=== PATIENT | male | born 1950 | race Caucasian/White ===

== ENCOUNTER → 2022-09-21 09:09 | Outpatient (CLI) | payer MEDICARE, SELFPAY ==
--- NOTE | 2022-09-21 09:11 | DI.RAD.S_ITS ---
PROCEDURE: XR FOOT RT MIN 3V INDICATIONS: TTP over right proximal foot and posterior to lat malleolus TECHNIQUE: 3 views of the foot were acquired. COMPARISON: [facility], CR, XR ANKLE RT MIN 3V, 09/21/2022, 9:07. FINDINGS: Bones: Oblique distal fibular shaft fracture in the region of the syndesmosis. No other fracture or dislocation. Soft tissues: No tibiotalar joint effusion. Achilles tendon appears normal. IMPRESSION: Oblique distal fibular fracture. No fracture or dislocation at the foot. Dictated by: Joe Lancaster M.D. on 09/21/2022 at 9:42 Approved by: Joe Lancaster M.D. on 09/21/2022 at 9:43
--- NOTE | 2022-09-21 09:11 | DI.RAD.S_ITS ---
PROCEDURE: XR ANKLE RT MIN 3V INDICATIONS: TTP over navicula TECHNIQUE: 3 views of the ankle were acquired. COMPARISON: None. FINDINGS: Bones: Oblique nondisplaced distal fibular fracture in the region of the syndesmosis. No other fractures or dislocations. Ankle mortise is normally aligned. No suspicious bony lesions. Soft tissues: No tibiotalar joint effusion. Achilles tendon appears normal. IMPRESSION: Oblique distal fibular fracture in the region of the syndesmosis. Dictated by: Joe Lancaster M.D. on 09/21/2022 at 9:43 Approved by: Joe Lancaster M.D. on 09/21/2022 at 9:43
== END ==
PROVIDERS: Referring Provider Physician Assistant; Visit Provider Physician Assistant
DX: S82.434A Nondisplaced oblique fracture of shaft of right fibula, initial encounter for closed fracture (principal); M25.571 Pain in right ankle and joints of right foot; M79.671 Pain in right foot
CPT/HCPCS: 73610; 73630

== ENCOUNTER 2022-09-24 13:36 | Emergency (ER) | payer MEDICARE, SELFPAY ==
[2022-09-24 13:41] VITALS: BP 213/115; PULSE 83; O2SAT 93
[2022-09-24 13:42] VITALS: BP 213/111; PULSE 83; RESP 19; TEMP 36.7; O2SAT 94; BMI 30.3
[2022-09-24] MEDS: LIDOCAINE 2% (GLYDO) 6 ML GEL TOP (13:52)
[2022-09-24 14:00] VITALS: PULSE 82; O2SAT 96
[2022-09-24 14:00] LABS: Appearance Urine UA CLEAR; Bilirubin Urine UA NEGATIVE (NEGATIVE); Color Urine UA YELLOW; Glucose Urine UA NEGATIVE (Negative); Ketones Urine UA NEGATIVE (NEGATIVE); Leukocyte Esterase Urine UA NEGATIVE (NEGATIVE); Nitrite Urine UA NEGATIVE (Negative); Occult Blood Urine UA NEGATIVE (Negative); Protein Urine UA 1+ (Negative); Specific Gravity Urine UA 1.015 (1.000-1.035); pH Urine UA 5.5 (4.5-8.0)
[2022-09-24 14:09] LABS: Bacteria Urine None Seen; Culture Indicated Urine Cult Not Indicated; RBC Urine 5-10/HPF (0-5/HPF); Squamous Epithelial Cell Urine None Seen (0-5/HPF); WBC Urine 0-1/HPF (0-5/HPF)
--- NOTE | 2022-09-24 14:15 | ED_ITS ---
HPI - General Adult General Chief complaint: Urogenital-Male Stated complaint: unable to void x 24 hours, pain, discomfort. Time Seen by Provider: 09/24/22 13:46 Source: patient Mode of arrival: Wheelchair History of Present Illness HPI narrative: Patient is a 72-year-old male. No prior history of prostate issues. No prior history of urinary retention who is here for evaluation of approximately 24 hours of the inability to void. He states that during this time he also has felt like he is needed to have a bowel movement but has not been able to. He is not had any vomiting. He actually states he did have a small amount of urinati on this morning but has not been able to void at all since then. He was having some lower abdominal tenderness. He did receive the Ayala catheter prior to my evaluation he states he does feel much better. He is still having the urge to have a bowel movement. He states he does feel like there is stool in his rectum. He did try an enema at home prior to arrival without any success. Related Data Home Medications Medication Instructions Recorded Confirmed lisinopril 5 mg tablet 5 mg PO DAILY 09/21/22 09/21/22 lovastatin 10 mg tablet 10 mg PO DAILY 09/21/22 09/21/22 metformin 500 mg tablet 500 mg PO DAILY 09/21/22 09/21/22 sildenafil 25 mg tablet 25 mg PO DAILY PRN 09/21/22 09/21/22 Previous Rx's Medication Instructions Recorded tamsulosin 0.4 mg capsule (Flomax) 0.4 mg PO DAILY #30 caps 09/24/22 Allergies Allergy/AdvReac Type Severity Reaction Status Date / Time No Known Drug Allergies Allergy Unverified 09/24/22 13:42 Review of Systems Gastrointestinal Gastrointestinal: Reports system reviewed and no additional complaints, except as documented Genitourinary Genitourinary: Reports system reviewed and no additional complaints, except as documented Integumentary/Breasts Skin/Breast: Reports system reviewed and no additional complaints, except as documented Patient History Smoking Status: Never smoker Substance Use Type: does not use Exam Initial Vital Signs Initial Vital Signs: Vital Signs Pulse Rate 83 09/24/22 13:41 Blood Pressure 213/115 H 09/24/22 13:41 Pulse Oximetry 93 09/24/22 13:41 HENMT Head: normal to inspection and normocephalic Resp Effort & Inspection: normal respiratory effort Cardio Rate: regular rate GI Inspection: normal to inspection and non-distended Palpation: soft, No firm and No tender Neuro General: patient alert, patient awake and moves all extremities Extrem General: normal to inspection and capillary refill normal Course Orders Ordered: ED Orders 09/24/22 13:48 Urinalysis and Microscopic Stat Discontinued Medications Lidocaine HCl (Lidocaine 2% (Glydo) 6 Ml Gel) 6 ml TOP NOW ONE Stop: 09/24/22 13:40 Last Admin: 09/24/22 13:52 Dose: 6 ml Documented By: CTS Sodium Biphosphate/Sodium Phosphate (Fleets Enema) 1 each PA NOW ONE Stop: 09/24/22 14:37 Vital Signs Vital signs: Vital Signs - 8 hr 09/24/22 13:42 09/24/22 13:41 09/24/22 13:41 Temperature 98.1 F Pulse Rate 83 83 Respiratory Rate 19 Blood Pressure 213/111 H 213/115 H Pulse Oximetry 94 93 Oxygen Delivery Method Room Air 09/24/22 14:00 09/24/22 14:30 Temperature Pulse Rate 82 80 Respiratory Rate Blood Pressure Pulse Oximetry 96 98 Oxygen Delivery Method Medical Decision Making Lab Data Labs: Lab Results 09/24/22 Range/Units 13:48 Urine Color Yellow Urine Appearance Clear Urine pH 5.5 (4.5-8.0) Ur Specific [place] 1.015 (1.000-1.035) Urine Protein 1+ H (Negative) Urine Glucose (UA) Negative (Negative) g/dL Urine Ketones Negative (NEGATIVE) Urine Occult Blood Negative (Negative) Urine Nitrate Negative (Negative) Urine Bilirubin Negative (NEGATIVE) Urine Urobilinogen 1.0 (0.2) E.U./dL Ur Leukocyte Esterase Negative (NEGATIVE) Urine RBC 5-10/hpf H (0-5/HPF) Urine WBC 0-1/hpf (0-5/HPF) Ur Squamous Epith Cells None seen (0-5/HPF) Urine Bacteria None seen (None) Ur Culture Indicated? Cult not indicated MDM Narrative Medical decision making narrative: A Ayala catheter was placed with a total of just less than 1 L of urine. Patient also had a very large bowel movement here in the ER. This was done prior to obtaining any sort of enema. He states he feels much better. He is no signs of a urinary tract infection. Plan abuse leave the catheter in place. We will start him on Flomax. Will have him contact Urology for follow-up. He was given return precautions. He expressed understanding and agreement. Discharge Plan Departure Patient Disposition: Home Clinical Impression: Acute retention of urine Instructions: How to Care for Your Ayala Catheter -- Male, DI for Urinary Retention in Men Activity Restrictions/Additional Instructions: I do recommend that you start taking the Flomax/tamsulosin as directed. On Saturday morning contact the Urology Department at the number provided below for a follow-up. Return to the emergency department for new or worsening symptoms. Prescriptions: New tamsulosin [Flomax] 0.4 mg capsule 0.4 mg PO DAILY Qty: 30 0RF No Action metformin 500 mg tablet 500 mg PO DAILY lisinopril 5 mg tablet 5 mg PO DAILY lovastatin 10 mg tablet 10 mg PO DAILY sildenafil 25 mg tablet 25 mg PO DAILY PRN Rx Instructions: administer 30 minutes to 4 hours before activity Referrals: Jonah Godinez MD [Primary Care Provider] - Jonah Fernando MD [Physician] - Stand Alone Forms: Patient Portal/API
[2022-09-24 14:30] VITALS: PULSE 80; O2SAT 98
--- NOTE | 2022-09-24 15:33 | PC.NURSE ---
Pt had large BM after carbajal drainage. Pt states he feels much better. Enema was not needed. Carbajal drained and leg bag applied and pt instructed how to use.
[2022-09-24 15:52] VITALS: BP 185/95; PULSE 82; RESP 16; O2SAT 99
== END 2022-09-24 15:52 | disposition home or self-care (01) ==
PROVIDERS: Emergency Provider Emergency Medicine; PCP Internal Medicine
DX: R33.8 Other retention of urine (principal); R10.30 Lower abdominal pain, unspecified
CPT/HCPCS: 81001; 99283

== ENCOUNTER 2022-09-24 22:41 | Observation (INO) | payer MEDICARE, SELFPAY ==
[2022-09-24 22:46] VITALS: BP 175/84; PULSE 118; RESP 19; TEMP 36.4; O2SAT 96; BMI 30.3
--- NOTE | 2022-09-24 22:53 | DI.RAD.S_ITS ---
PROCEDURE: XR CHEST 1V INDICATIONS: chest pain TECHNIQUE: One view of the chest was acquired. COMPARISON: [facility], CR, XR CHEST 1 VIEW, 08/22/2020, 23:25. FINDINGS: Surgical changes and devices: None. Lungs and pleura: There is hyperinflation of the lungs with flattening of the hemidiaphragms compatible with COPD. No acute consolidation. Linear atelectasis or scarring redemonstrated within the left lung base. No pleural effusions or pneumothorax. Mediastinum: Mediastinal contours are unchanged. Heart size is enlarged. Bones and chest wall: No suspicious bony lesions. Overlying soft tissues appear unremarkable. IMPRESSION: 1. Findings compatible with COPD. 2. Probable atelectasis or scarring in the left lung base. Dictated by: Gaston Ortiz M.D. on 09/25/2022 at 0:02 Approved by: Gaston Ortiz M.D. on 09/25/2022 at 0:03
--- NOTE | 2022-09-24 23:34 | ED_ITS ---
HPI - Weakness General Chief complaint: Weakness Stated complaint: weak/fever/tingle/heart rate is up Time Seen by Provider: 09/24/22 23:01 Source: patient Mode of arrival: Wheelchair History of Present Illness HPI Narrative: Patient is 72-year-old male history of hyperlipidemia hypertension diabetes presenting for the 3rd time this week and 2nd time today. He initially presented with right ankle pain and injury. Found to have a spiral distal fibular fracture on September 21. He has been placed in a walking boot and seems to be doing okay. He did also injure his big toe at that time. He then had some urinary retention and constipation and was seen this morning in the ED. He reports that this morning he was only able to void a small amount. He also felt like he was constipated. He would a Ayala catheter placed for the urinary retention. Urinalysis this morning was negative vitals were stable he is since had a large bowel movement. Tonight he reports he just increased weakness. He says he went home and just head extreme fatigue not feeling well. He is noted to be quite tachycardic heart rate in the 118. He denies any worsening cough or shortness of breath. No significant abdominal pain no nausea or vomiting. His ankle is painful. He is from [place] currently living on his boat. Related Data Home Medications Medication Instructions Recorded Confirmed lisinopril 5 mg tablet 5 mg PO DAILY 09/21/22 09/21/22 lovastatin 10 mg tablet 10 mg PO DAILY 09/21/22 09/21/22 metformin 500 mg tablet 500 mg PO DAILY 09/21/22 09/21/22 sildenafil 25 mg tablet 25 mg PO DAILY PRN 09/21/22 09/21/22 Previous Rx's Medication Instructions Recorded tamsulosin 0.4 mg capsule (Flomax) 0.4 mg PO DAILY #30 caps 09/24/22 Allergies Allergy/AdvReac Type Severity Reaction Status Date / Time No Known Drug Allergies Allergy Verified 09/24/22 22:46 Review of Systems Review of Systems ROS Unobtainable: All systems reviewed & are unremarkable except as noted in HPI and below Patient History Medical History Essential hypertension Hyperlipidemia due to type 2 diabetes mellitus Non-insulin dependent diabetes mellitus Social History (Reviewed 09/25/22 @ 03:46 by YUNG ThapaAi Smoking Status: Never smoker Smoking Status: Never smoker Substance Use Type: does not use Exam Initial Vital Signs Initial Vital Signs: Vital Signs Temperature 97.6 F 09/24/22 22:46 Pulse Rate 118 H 09/24/22 22:46 Respiratory Rate 19 09/24/22 22:46 Blood Pressure 175/84 H 09/24/22 22:46 Pulse Oximetry 96 09/24/22 22:46 Oxygen Delivery Method Room Air 09/24/22 22:46 GENERAL: Alert week 72-year-old male HEENT: Head atraumatic,EOMI, pupils reactive, face symmetric, dry mucous membranes CARDIOVASCULAR: Tachycardic regular rate and rhythm without murmurs, rubs or gallops. RESPIRATORY: Breath sounds equal bilaterally, no wheezes rales or rhonchi. ABDOMEN: Soft, nontender. Normoactive bowel sounds all 4 quadrants. No guar ding or rebound. EXTREMITIES: Normal range of motion, no clubbing or edema. Neurovascularly intact NEUROLOGICAL: Alert and oriented x4.Normal gait and speech. SKIN: Warm, dry, no laceration, no petechiae, no rashes or lesions. Patient's right ankle is unwrapped there is no erythema right big toe subungual hematoma but no erythema or redness. Course Orders Ordered: ED Orders 09/24/22 22:53 XR chest 1V Stat EKG-12 Lead Stat 09/24/22 23:30 Complete Blood Count AUTO DIFF Stat Comprehensive Metabolic Panel Stat Lactate (Lactic Acid) Stat Lipase Stat Magnesium Stat PTT Partial Thromboplastin [place] Stat Procalcitonin Stat Prothrombin Time INR Stat Troponin & CK Cardiac Panel Stat 09/24/22 23:53 Blood Culture Stat 09/24/22 23:56 Urine Culture Stat 09/25/22 00:01 UA Complete [Urinalysis and Microscopic] Stat 09/25/22 00:10 Covid-19 + FLU A/B + RSV - PCR Stat 09/25/22 03:21 Education, smoking cessation ONGOING Acetaminophen (Acetaminophen 325 Mg Tablet) 650 mg PO Q6H PRN PRN Reason: Fever/Mild Pain (1-3) Al Hydrox/Mg Hydrox/Simethicone (Mag Hydrox/Alum/Simeth 30 Ml Udc) 30 ml PO Q6HR PRN PRN Reason: Dyspepsia Atorvastatin Calcium (Atorvastatin 20 Mg Tablet) 10 mg PO BEDTIME [facility] Calcium Carbonate (Calcium Carbonate 500 Mg Tab) 1,000 mg PO Q4HR PRN PRN Reason: Dyspepsia Dextrose (Dextrose 50 % In Water 25 Gm/50 Ml Syringe) 25 gm IV PRN PRN PRN Reason: Hypoglycemia Enoxaparin Sodium (Enoxaparin 40 Mg/0.4 Ml Syringe) 40 mg SUBCUT DAILY LOVE Sodium Chloride (Normal Saline 0.9%) 1,000 mls @ 80 mls/hr IV CONT LOVE Ceftriaxone Sodium 1,000 mg/ (Sodium Chloride) 100 mls @ 200 mls/hr IV DAILY [facility] Insulin Human Lispro (Insulin Lispro 100 Unit/Ml 3ml Vial) 0 unit SUBCUT ACHS LOVE; Protocol Ketorolac Tromethamine (Ketorolac 10 Mg Tablet) 10 mg PO Q6HR PRN PRN Reason: Pain, Mild (1-1) Stop: 09/30/22 04:04 Lisinopril (Lisinopril 5 Mg Tablet) 5 mg PO DAILY [facility] Metoprolol Tartrate (Metoprolol Ir 25 Mg Tablet) 25 mg PO NOW ONE Stop: 09/25/22 04:13 Naloxone HCl (Naloxone 0.4 Mg/Ml Vial) 0.2 mg IV Q2MIN PRN PRN Reason: Opiate Reversal Ondansetron HCl (Ondansetron 4 Mg Odt) 4 mg PO Q8HR PRN PRN Reason: Nausea And Vomiting Sennosides (Sennosides 8.6 Mg Tablet) 17.2 mg PO BEDTIME [facility] Tamsulosin HCl (Tamsulosin 0.4 Mg Capsule) 0.4 mg PO DAILY [facility] Discontinued Medications Sodium Chloride (Normal Saline 0.9%) 1,000 mls @ 1,000 mls/hr IV BOLUS ONE Stop: 09/25/22 00:48 Last Infusion: 09/25/22 01:05 Dose: 0 mls/hr Documented By: Admin: 09/25/22 00:05 Dose: 1,000 mls/hr Documented By: QUOC Sodium Chloride (Normal Saline 0.9%) 1,000 mls @ 1,000 mls/hr IV BOLUS ONE Stop: 09/25/22 01:36 Last Infusion: 09/25/22 02:13 Dose: 0 mls/hr Documented By: Admin: 09/25/22 01:06 Dose: 1,000 mls/hr Documented By: QUOC Ceftriaxone Sodium 1,000 mg/ (Sodium Chloride) 100 mls @ 200 mls/hr IV NOW ONE Stop: 09/25/22 01:20 Last Infusion: 09/25/22 02:13 Dose: 0 mls/hr Documented By: Admin: 09/25/22 01:36 Dose: 200 mls/hr Documented By: QUOC Ceftriaxone Sodium 1,000 mg/ (Sodium Chloride) 100 mls @ 200 mls/hr IV NOW ONE Stop: 09/25/22 03:30 Ketorolac Tromethamine (Ketorolac 30 Mg/Ml Vial) 15 mg IV NOW ONE Stop: 09/25/22 01:22 Last Admin: 09/25/22 01:37 Dose: 15 mg Documented By: QUOC Non-Formulary Medication (Lovastatin) 10 mg PO DAILY LOVE Vital Signs Vital signs: Vital Signs - 8 hr 09/24/22 22:46 09/25/22 00:44 09/25/22 02:30 Temperature 97.6 F Pulse Rate 118 H 98 H 103 H Respiratory Rate 19 16 22 Blood Pressure 175/84 H 194/105 H 165/74 H Pulse Oximetry 96 97 Oxygen Delivery Method Room Air Room Air Room Air MDM - Weakness Lab Data 09/24/22 23:30 09/24/22 23:30 Labs: Lab Results 09/24/22 09/24/22 09/24/22 Range/Units 23:30 23:30 23:30 WBC 13.6 H (4.5-11.0) X10^3/uL RBC 4.69 (4.5-5.9) X10^6/uL Hgb 14.3 (13.5-17.5) g/dL Hct 41.2 (41-53) % MCV 87.8 (80-100) fL MCH 30.4 (26-34) PG MCHC 34.7 (30-36) % RDW 14.5 (11.6-14.8) % Plt Count 222 (150-400) X10^3/uL Neut % (Auto) 81.6 H (50-75) % Lymph % (Auto) 10.1 L (25-40) % Hill % (Auto) 7.6 (3-14) % Eos % (Auto) 0.1 L (2-4) % Baso % (Auto) 0.6 (0-2) % Neut # (Auto) 30322 H (2906-4796) /uL Lymph # (Auto) 1400 (5558-5616) /uL Hill # (Auto) 1000 H (0-900) /uL Eos # (Auto) 0 (0-450) /uL Baso # (Auto) 100 (0-100) /uL PT 13.0 H (10.1-12.7) SECONDS INR 1.1 (0.9-1.3) APTT 31 (26-36) SECONDS Sodium 131 L (137-145) mmol/L Potassium 4.1 (3.4-5.1) mmol/L Chloride 97 L (98-107) mmol/L Carbon Dioxide 23 (22-32) mmol/L BUN 16 (9-20) mg/dL Creatinine 0.87 (0.66-1.25) mg/dL Estimated GFR > 60 (>60) mL/min BUN/Creatinine Ratio 18.4 (6-22) Glucose 214 H (80-110) mg/dL Lactate (0.7-2.1) mmol/L Calcium 9.1 (8.4-10.2) mg/dL Magnesium 1.9 (1.6-2.3) mg/dL Total Bilirubin 0.9 (0.2-1.3) mg/dL AST 24 (17-59) IU/L ALT 29 (<50) IU/L Alkaline Phosphatase 113 (38-126) U/L Total Creatine Kinase 86 (55-170) U/L Troponin I < 0.012 (0.01-0.034) ng/mL NT-Pro-B Natriuret Pep (<125) pg/mL Total Protein 7.6 (6.3-8.2) g/dL Albumin 4.1 (3.5-5.0) g/dL Globulin 3.5 (1.7-4.1) g/dL Albumin/Globulin Ratio 1.2 (1.0-2.8) Lipase 45 (23-300) U/L Procalcitonin (<0.5) ng/mL Urine Color Urine Appearance Urine pH (4.5-8.0) Ur Specific [place] (1.000-1.035) Urine Protein (Negative) Urine Glucose (UA) (Negative) g/dL Urine Ketones (NEGATIVE) Urine Occult Blood (Negative) Urine Nitrate (Negative) Urine Bilirubin (NEGATIVE) Urine Urobilinogen (0.2) E.U./dL Ur Leukocyte Esterase (NEGATIVE) Urine RBC (0-5/HPF) Urine WBC (0-5/HPF) Ur Squamous Epith Cells (0-5/HPF) Urine Bacteria (None) Ur Culture Indicated? SARS-CoV-2 (PCR) (Negative) Influenza A (RT-PCR) (NEGATIVE) Influenza B (RT-PCR) (NEGATIVE) RSV (PCR) (Negative) 09/24/22 09/24/22 09/24/22 Range/Units 23:30 23:30 23:30 WBC (4.5-11.0) X10^3/uL RBC (4.5-5.9) X10^6/uL Hgb (13.5-17.5) g/dL Hct (41-53) % MCV (80-100) fL MCH (26-34) PG MCHC (30-36) % RDW (11.6-14.8) % Plt Count (150-400) X10^3/uL Neut % (Auto) (50-75) % Lymph % (Auto) (25-40) % Hill % (Auto) (3-14) % Eos % (Auto) (2-4) % Baso % (Auto) (0-2) % Neut # (Auto) (4037-0516) /uL Lymph # (Auto) (8362-5080) /uL Hill # (Auto) (0-900) /uL Eos # (Auto) (0-450) /uL Baso # (Auto) (0-100) /uL PT (10.1-12.7) SECONDS INR (0.9-1.3) APTT (26-36) SECONDS Sodium (137-145) mmol/L Potassium (3.4-5.1) mmol/L Chloride (98-107) mmol/L Carbon Dioxide (22-32) mmol/L BUN (9-20) mg/dL Creatinine (0.66-1.25) mg/dL Estimated GFR (>60) mL/min BUN/Creatinine Ratio (6-22) Glucose (80-110) mg/dL Lactate 3.1 H (0.7-2.1) mmol/L Calcium (8.4-10.2) mg/dL Magnesium (1.6-2.3) mg/dL Total Bilirubin (0.2-1.3) mg/dL AST (17-59) IU/L ALT (<50) IU/L Alkaline Phosphatase (38-126) U/L Total Creatine Kinase (55-170) U/L Troponin I (0.01-0.034) ng/mL NT-Pro-B Natriuret Pep 577 H (<125) pg/mL Total Protein (6.3-8.2) g/dL Albumin (3.5-5.0) g/dL Globulin (1.7-4.1) g/dL Albumin/Globulin Ratio (1.0-2.8) Lipase (23-300) U/L Procalcitonin 0.24 (<0.5) ng/mL Urine Color Urine Appearance Urine pH (4.5-8.0) Ur Specific [place] (1.000-1.035) Urine Protein (Negative) Urine Glucose (UA) (Negative) g/dL Urine Ketones (NEGATIVE) Urine Occult Blood (Negative) Urine Nitrate (Negative) Urine Bilirubin (NEGATIVE) Urine Urobilinogen (0.2) E.U./dL Ur Leukocyte Esterase (NEGATIVE) Urine RBC (0-5/HPF) Urine WBC (0-5/HPF) Ur Squamous Epith Cells (0-5/HPF) Urine Bacteria (None) Ur Culture Indicated? SARS-CoV-2 (PCR) (Negative) Influenza A (RT-PCR) (NEGATIVE) Influenza B (RT-PCR) (NEGATIVE) RSV (PCR) (Negative) 09/24/22 09/25/22 09/25/22 Range/Units 23:56 00:10 01:33 WBC (4.5-11.0) X10^3/uL RBC (4.5-5.9) X10^6/uL Hgb (13.5-17.5) g/dL Hct (41-53) % MCV (80-100) fL MCH (26-34) PG MCHC (30-36) % RDW (11.6-14.8) % Plt Count (150-400) X10^3/uL Neut % (Auto) (50-75) % Lymph % (Auto) (25-40) % Hill % (Auto) (3-14) % Eos % (Auto) (2-4) % Baso % (Auto) (0-2) % Neut # (Auto) (4945-6201) /uL Lymph # (Auto) (4762-9978) /uL Hill # (Auto) (0-900) /uL Eos # (Auto) (0-450) /uL Baso # (Auto) (0-100) /uL PT (10.1-12.7) SECONDS INR (0.9-1.3) APTT (26-36) SECONDS Sodium (137-145) mmol/L Potassium (3.4-5.1) mmol/L Chloride (98-107) mmol/L Carbon Dioxide (22-32) mmol/L BUN (9-20) mg/dL Creatinine (0.66-1.25) mg/dL Estimated GFR (>60) mL/min BUN/Creatinine Ratio (6-22) Glucose (80-110) mg/dL Lactate 2.0 (0.7-2.1) mmol/L Calcium (8.4-10.2) mg/dL Magnesium (1.6-2.3) mg/dL Total Bilirubin (0.2-1.3) mg/dL AST (17-59) IU/L ALT (<50) IU/L Alkaline Phosphatase (38-126) U/L Total Creatine Kinase (55-170) U/L Troponin I (0.01-0.034) ng/mL NT-Pro-B Natriuret Pep (<125) pg/mL Total Protein (6.3-8.2) g/dL Albumin (3.5-5.0) g/dL Globulin (1.7-4.1) g/dL Albumin/Globulin Ratio (1.0-2.8) Lipase (23-300) U/L Procalcitonin (<0.5) ng/mL Urine Color Yellow Urine Appearance Clear Urine pH 5.5 (4.5-8.0) Ur Specific [place] 1.020 (1.000-1.035) Urine Protein 1+ H (Negative) Urine Glucose (UA) 3+ H (Negative) g/dL Urine Ketones Trace H (NEGATIVE) Urine Occult Blood 3+ H (Negative) Urine Nitrate Negative (Negative) Urine Bilirubin Negative (NEGATIVE) Urine Urobilinogen 1.0 (0.2) E.U./dL Ur Leukocyte Esterase 1+ H (NEGATIVE) Urine RBC 1-5/hpf (0-5/HPF) Urine WBC 5-10/hpf H (0-5/HPF) Ur Squamous Epith Cells None seen (0-5/HPF) Urine Bacteria None seen (None) Ur Culture Indicated? Specimen cultured SARS-CoV-2 (PCR) Negative (Negative) Influenza A (RT-PCR) Flu a negative (NEGATIVE) Influenza B (RT-PCR) Flu b negative (NEGATIVE) RSV (PCR) Negative (Negative) Urine Dip Bedside Urine Glucose 2000+ mg/dl Bedside Urine Bilirubin - Negative Bedside Urine Ketone - Negative Urine Specific [place] 1.020 Bedside Urine Occult Blood +++ Bedside Urine pH 5.5 Bedside Urine Protein + 30 Bedside Urine Urobilinogen - Negative Bedside Urine Nitrite - Negative Bedside Urine Leukocytes +/- 15 Esterase Imaging Data Chest x-ray: Radiologist Impression: PROCEDURE:? XR CHEST 1V ? INDICATIONS:? chest pain ? TECHNIQUE:? One view of the chest was acquired.? ? COMPARISON:? [facility], , XR CHEST 1 VIEW, 08/22/2020, 23:25. ? FINDINGS:? ? Surgical changes and devices:? None.? ? Lungs and pleura:? There is hyperinflation of the lungs with flattening of the hemidiaphragms compatible with COPD.? No acute consolidation.? Linear atelectasis or scarring redemonstrated within the left lung base.? No pleural effusions or pneumothorax. ? ? Mediastinum:? Mediastinal contours are unchanged.? Heart size is enlarged. ? Bones and chest wall:? No suspicious bony lesions.? Overlying soft tissues appear unremarkable.? ? IMPRESSION:? ? 1. Findings compatible with COPD. ? 2. Probable atelectasis or scarring in the left lung base.? ? ? Dictated by: Gaston Ortiz M.D. on 09/25/2022 at 0:02 ? ? Approved by: Gaston Ortiz M.D. on 09/25/2022 at 0:03? ECG Data Interpretation: Sinus tachycardia rate 108 KS interval 170 QRS 4 QTC 452 Q-wave noted in lead [address] changes no priors to compare MDM Narrative Medical decision making narrative: Patient is 72-year-old male presents today with generally not feeling well. He would Ayala catheter placed this morning long with some diarrhea constipation. He is to be quite tachycardic 118 initially he was not tachycardic during his last visit he has some mild leukocytosis 13 with a lactic acid of 3.1. He is afebrile here in the ED. Concern for sepsis UTI. There is no cellulitis identified, no pneumonia or other symptoms. He is given Rocephin. Urinalysis earlier this morning did not show any leukocytes however now there is WBC and leuks along with blood. He is not having any abdominal pain or back pain. No nausea or vomiting. Just generally weak heart rate improves with IV fluids lactate improves as well. Symptoms came on extremely fasting very sudden. [facility] accepts patient Discharge Plan Departure Patient Disposition: Admitted As Inpatient Clinical Impression: Acute UTI Admit Date/Time: 09/25/22 03:24 Admit Provider: Imelda Kee
[2022-09-24 23:49] LABS: Add Manual Diff / Slide Review NO; Basophils Absolute Auto 100 /uL (0-100); Basophils Percent Auto 0.6 % (0-2); Eosinophils Absolute Auto 0 /uL (0-450); Eosinophils Percent Auto 0.1 % (2-4); Hematocrit 41.2 % (41-53); Hemoglobin 14.3 g/dL (13.5-17.5); Lymphocytes Absolute Auto 1400 /uL (1100-4500); Lymphocytes Percent Auto 10.1 % (25-40); Mean Corpuscular HGB Conc 34.7 % (30-36); Mean Corpuscular Hemoglobin 30.4 PG (26-34); Mean Corpuscular Volume 87.8 fL (80-100); Monocytes Absolute Auto 1000 /uL (0-900); Monocytes Percent Auto 7.6 % (3-14); Neutrophils Absolute Auto 11100 /uL (1500-7000); Neutrophils Percent Auto 81.6 % (50-75); Platelet Count 222 X10^3/uL (150-400); Red Blood Cell Count 4.69 X10^6/uL (4.5-5.9); Red Cell Distribution Width 14.5 % (11.6-14.8); White Blood Cell Count 13.6 X10^3/uL (4.5-11.0)
[2022-09-24 23:52] LABS: INR 1.1 (0.9-1.3)
[2022-09-24 23:54] LABS: Lactate (Lactic Acid) 3.1 mmol/L (0.7-2.1)
[2022-09-24 23:55] LABS: PTT Partial Thromboplastin Tim 31 SECONDS (26-36)
[2022-09-24 23:56] LABS: Alanine Aminotransferase 29 IU/L (<50); Albumin 4.1 g/dL (3.5-5.0); Albumin Globulin Ratio 1.2 (1.0-2.8); Alkaline Phosphatase 113 U/L (38-126); Aspartate Aminotransferase 24 IU/L (17-59); BUN Creatinine Ratio 18.4 (6-22); Bilirubin Total 0.9 mg/dL (0.2-1.3); Blood Urea Nitrogen 16 mg/dL (9-20); Calcium 9.1 mg/dL (8.4-10.2); Carbon Dioxide 23 mmol/L (22-32); Chloride 97 mmol/L (98-107); Creatine Kinase 86 U/L (55-170); Estimated Glomerular Filt Rate > 60 mL/min (>60); Globulin 3.5 g/dL (1.7-4.1); Glucose 214 mg/dL (80-110); HEMOLYSIS < 15 (0-50); Lipase 45 U/L (23-300); Magnesium 1.9 mg/dL (1.6-2.3); Potassium 4.1 mmol/L (3.4-5.1); Sodium 131 mmol/L (137-145); Total Protein 7.6 g/dL (6.3-8.2)
[2022-09-25] VITALS (11 sets, daily range): BP systolic 147–205; BP diastolic 74–109; PULSE 72–105; RESP 16–24; TEMP 36.3–36.9; O2SAT 97–98; BMI 30.8
[2022-09-25] MEDS: SODIUM CHLORIDE 0.9% 1,000 ML 1000 ML IV ×2 (00:05→01:06)
[2022-09-25 00:09] LABS: Troponin I < 0.012 ng/mL (0.01-0.034)
[2022-09-25 00:12] LABS: Procalcitonin 0.24 ng/mL (<0.5)
[2022-09-25 00:30] LABS: Appearance Urine UA CLEAR; Bilirubin Urine UA NEGATIVE (NEGATIVE); Color Urine UA YELLOW; Glucose Urine UA 3+ g/dL (Negative); Ketones Urine UA TRACE (NEGATIVE); Leukocyte Esterase Urine UA 1+ (NEGATIVE); Nitrite Urine UA NEGATIVE (Negative); Occult Blood Urine UA 3+ (Negative); Protein Urine UA 1+ (Negative); pH Urine UA 5.5 (4.5-8.0)
[2022-09-25 00:46] LABS: Bacteria Urine None Seen; RBC Urine 1-5/HPF (0-5/HPF); Squamous Epithelial Cell Urine None Seen (0-5/HPF); WBC Urine 5-10/HPF (0-5/HPF)
[2022-09-25 00:47] LABS: Culture Indicated Urine Specimen Cultured
[2022-09-25 01:28] LABS: Influenza A - CEPHEID Flu A NEGATIVE (NEGATIVE); Influenza B - CEPHEID Flu B NEGATIVE (NEGATIVE); Respiratory Syncytial Virus Negative (Negative)
[2022-09-25 01:30] LABS: COVID-19 CEPHEID 4-PLEX PCR Negative (Negative)
[2022-09-25 01:35] LABS: Reflexed Lactate in 2 Hours Y
[2022-09-25] MEDS: cefTRIAXone 1,000 MG in SODIUM CHLORIDE 0.9% 100 ML 200 MG IV ×2 (01:36→04:30)
[2022-09-25] MEDS: KETOROLAC 30 MG/ML VIAL 15 MG IV (01:37)
--- NOTE | 2022-09-25 03:33 | P.HP_ITS ---
History of Present Illness History of Present Illness Date Patient Seen: 09/25/22 Time Patient Seen: 03:33 Chief complaint: Urinary retention, tachy, lactic acidosis, HTN Urg Narrative: Kem Huitron is a 72-year-old male with a past medical history of HTN, HLD, NID DM who has presented to the emergency department 3 times this week and twice in the past 24 hrs. ?He initially presented with right ankle pain and injury, spiral distal fibular fracture on September 21, in a walking boot. He then demonstrated while in ED some urinary retention and constipation and was seen this morning in the ED. A Ayala catheter was placed. Urinalysis this morning was negative vitals were stable, and he had a large bowel movement in the department he was discharged home to follow up with Urology as an outpatient.? Tonight he returned c/o increased weakness and extreme fatigue.?In Ed he was found to be quite tachycardic heart rate in the 118, HTN urgency 213/111, 194/105 Patient received 2 L of fluid and a g of Rocephin in ED. On admit patient complains of mild shortness of breath with continued feeling of pounding from tachycardia, has had some mild chills on and off noticed urinary retention this morning, and was lightheaded when he got up to transfer to the bed. Denies chest pain, headache, changes in vision, difficulty swallowing, speech impairment, numbness, tingling, head injury, LOC, fever, body aches, cough, recent exposure to illness, abdominal pain, nausea, vomiting, dysuria, frequency, urgency, hematuria, stool incontinence, melena, rashes, recent changes to medication, illness or trauma. Denies any trauma to spine or head. His ankle is painful.? He is from [place] living on his boat. He denies any personal or family history of atrial fibrillation or tachycardia, no personal history of any cardiac issues, work up, surgery or treatment. On admit BP has improved temp 97?, 165/74, continues to be mildly tachycardic 103, 22, O2 sat 97% on room air. Notable WBC 13.6, neut 11,100, mono 1000, sodium 131, blood sugar 214, lactate 3.1, procalcitonin is negative, urinalysis positive for ketones glucose leukocytes and WBC-culture pending, blood culture pending, COVID/influenza a/B/RSV are all negative. Chest x-ray findings support COPD, possible atelectasis in left lung base. Patient is admitted for acute urinary retention, tachycardia, lactic acidosis, hypertensive urgency. [facility] Medical History Essential hypertension Hyperlipidemia due to type 2 diabetes mellitus Non-insulin dependent diabetes mellitus Surgical History (Updated 09/25/22 @ 04:29 by YONAS Thapa-CHANG) History of cholecystectomy Family History (Updated 09/25/22 @ 04:30 by YONAS Thapa-CHANG) Mother Diabetes mellitus Hypertension Father Diabetes mellitus Hypertension History of open heart surgery Heart attack Social History (Updated 09/25/22 @ 04:30 by YONAS Thapa-) Smoking Status: Never smoker alcohol intake: never substance use type: does not use Meds Home Medications and Allergies Home Medications Medication Instructions Recorded Confirmed Type lisinopril 5 mg tablet 5 mg PO DAILY 09/21/22 09/25/22 History lovastatin 10 mg tablet 10 mg PO DAILY 09/21/22 09/25/22 History metformin 500 mg tablet 500 mg PO DAILY 09/21/22 09/25/22 History sildenafil 25 mg tablet 25 mg PO DAILY PRN 09/21/22 09/21/22 History tamsulosin 0.4 mg capsule (Flomax) 0.4 mg PO DAILY #30 caps 09/24/22 09/25/22 Rx metoprolol tartrate 50 mg tablet 50 mg PO BID 09/25/22 09/25/22 History Allergies Allergy/AdvReac Type Severity Reaction Status Date / Time No Known Drug Allergies Allergy Verified 09/24/22 22:46 Review of Systems Review of Systems Narrative: All 12 point systems reviewed with the patient and are negative except otherwise documented. Exam Vital Signs (past 8 hours): - 09/24/22 22:46 09/25/22 00:44 09/25/22 02:30 Temperature 97.6 F Pulse Rate 118 H 98 H 103 H Respiratory Rate 19 16 22 Blood Pressure 175/84 H 194/105 H 165/74 H Pulse Oximetry 96 97 Oxygen Delivery Method Room Air Room Air Room Air Oxygen Delivery Method Room Air Narrative Exam Narrative: General: Patient is a well-developed, well-nourished elderly male in mild d iscomfort, but no acute distress at this time. HEENT: Normocephalic, atraumatic, extraocular muscles intact, oral pharynx is clear and mucous membranes are moist. Neck is supple and symmetric, trachea is midline, no adenopathy, no thyroid enlargement, nontender, no masses palpated. Negative for JVD Chest: Normal AP diameter and contour without kyphoscoliosis, Equal chest rise without nasal flaring, retractions, tachypneic or labored breathing. Lungs: Auscultation of all lung velasco are clear without adventitious sounds, wheezes, rhonchi, or rales. Cardio: regular tachycardic rate and rhythm without murmur, rubs, or gallops, no carotid bruit, no cardiac pulsations present. Abdomen: Soft nontender, negative for organomegaly, or masses. Bowel sounds are present in all 4 quadrants without guarding or rebound, no CVA tenderness. Musculoskeletal: Muscle strength and tone are equal, no deformity, crepitus, effusions, cyanosis, clubbing present. Noted trace left ankle nonpitting edema- baseline. Right foot is in a walking boot. Full range of motion intact radial and pedal pulses are normal. Skin: Warm dry and intact without rashes, ulcerations or petechiae. Neuro: Alert and orientated x3, moves all extremities, sensation to touch intact, no gross deficits noted of cranial nerves. Psych: Patient has a well-kept appearance, appropriate affect, mental status attitude thought context and judgment are appropriate for age. Objective Labs 09/24/22 23:30 09/24/22 23:30 Labs: Laboratory Results - last 24 hr 09/24/22 09/24/22 09/24/22 23:30 23:30 23:30 WBC 13.6 H RBC 4.69 Hgb 14.3 Hct 41.2 MCV 87.8 MCH 30.4 MCHC 34.7 RDW 14.5 Plt Count 222 Neut % (Auto) 81.6 H Lymph % (Auto) 10.1 L [place] % (Auto) 7.6 Eos % (Auto) 0.1 L Baso % (Auto) 0.6 Neut # (Auto) 35226 H Lymph # (Auto) 1400 [place] # (Auto) 1000 H Eos # (Auto) 0 Baso # (Auto) 100 PT 13.0 H INR 1.1 APTT 31 Sodium 131 L Potassium 4.1 Chloride 97 L Carbon Dioxide 23 BUN 16 Creatinine 0.87 Estimated GFR > 60 BUN/Creatinine Ratio 18.4 Glucose 214 H Lactate Calcium 9.1 Magnesium 1.9 Total Bilirubin 0.9 AST 24 ALT 29 Alkaline Phosphatase 113 Total Creatine Kinase 86 Troponin I < 0.012 Total Protein 7.6 Albumin 4.1 Globulin 3.5 Albumin/Globulin Ratio 1.2 Lipase 45 Procalcitonin Urine Color Urine Appearance Urine pH Ur Specific [place] Urine Protein Urine Glucose (UA) Urine Ketones Urine Occult Blood Urine Nitrate Urine Bilirubin Urine Urobilinogen Ur Leukocyte Esterase Urine RBC Urine WBC Ur Squamous Epith Cells Urine Bacteria Ur Culture Indicated? SARS-CoV-2 (PCR) Influenza A (RT-PCR) Influenza B (RT-PCR) RSV (PCR) 09/24/22 09/24/22 09/24/22 23:30 23:30 23:56 WBC RBC Hgb Hct MCV MCH MCHC RDW Plt Count Neut % (Auto) Lymph % (Auto) [place] % (Auto) Eos % (Auto) Baso % (Auto) Neut # (Auto) Lymph # (Auto) [place] # (Auto) Eos # (Auto) Baso # (Auto) PT INR APTT Sodium Potassium Chloride Carbon Dioxide BUN Creatinine Estimated GFR BUN/Creatinine Ratio Glucose Lactate 3.1 H Calcium Magnesium Total Bilirubin AST ALT Alkaline Phosphatase Total Creatine Kinase Troponin I Total Protein Albumin Globulin Albumin/Globulin Ratio Lipase Procalcitonin 0.24 Urine Color Yellow Urine Appearance Clear Urine pH 5.5 Ur Specific [place] 1.020 Urine Protein 1+ H Urine Glucose (UA) 3+ H Urine Ketones Trace H Urine Occult Blood 3+ H Urine Nitrate Negative Urine Bilirubin Negative Urine Urobilinogen 1.0 Ur Leukocyte Esterase 1+ H Urine RBC 1-5/hpf Urine WBC 5-10/hpf H Ur Squamous Epith Cells None seen Urine Bacteria None seen Ur Culture Indicated? Specimen cultured SARS-CoV-2 (PCR) Influenza A (RT-PCR) Influenza B (RT-PCR) RSV (PCR) 09/25/22 09/25/22 00:10 01:33 WBC RBC Hgb Hct MCV MCH MCHC RDW Plt Count Neut % (Auto) Lymph % (Auto) [place] % (Auto) Eos % (Auto) Baso % (Auto) Neut # (Auto) Lymph # (Auto) [place] # (Auto) Eos # (Auto) Baso # (Auto) PT INR APTT Sodium Potassium Chloride Carbon Dioxide BUN Creatinine Estimated GFR BUN/Creatinine Ratio Glucose Lactate 2.0 Calcium Magnesium Total Bilirubin AST ALT Alkaline Phosphatase Total Creatine Kinase Troponin I Total Protein Albumin Globulin Albumin/Globulin Ratio Lipase Procalcitonin Urine Color Urine Appearance Urine pH Ur Specific [place] Urine Protein Urine Glucose (UA) Urine Ketones Urine Occult Blood Urine Nitrate Urine Bilirubin Urine Urobilinogen Ur Leukocyte Esterase Urine RBC Urine WBC Ur Squamous Epith Cells Urine Bacteria Ur Culture Indicated? SARS-CoV-2 (PCR) Negative Influenza A (RT-PCR) Flu a negative Influenza B (RT-PCR) Flu b negative RSV (PCR) Negative Assessment & Plan Assessment & Plan narrative: Kem Huitron is a 72-year-old male with a past medical history of HTN, HLD, NIDDM, spiral distal fibular fracture on September 21 who has presented to the emergency department 3 times this week and twice in the past 24 hrs. Patient is admitted for acute urinary retention, tachycardia, lactic acidosis, neutrophilic leukocytosis, and hypertensive urgency. Patient's tachycardia continues with hypertensive urgency, order a echo unable to order stress test due to patient's fibula fracture, IV hydration, antibiotics trend inflammatory markers, and await pending culture results. Acute urinary retention, present on admission * Suspect possible UTI secondary to urinary retention. * Ayala placed earlier in the day in ED * Patient to follow-up outpatient with Urology * Ayala management, I&O Q shift * Continue Flomax Tachycardia, acute, present on admission * ED: 118 * Admit 103 * Patient placed on tele for monitoring * Potassium 4.1, magnesium 1.9, troponin negative- repeat in am * Orthostatics q.4 hours while awake only Hypertensive urgency in the setting essential hypertension, acute on chronic, present on admission * ED: 213/111, 194/105 * Admit: 162/84, arrival 176/104 * Heart Score:5 * I suspect a UTI 2nd to rention is the cause, but will complete risk stratification * Patient became very agitated when lying flat. * Continue lisinopril * Patient advised he is on metoprolol 50 mg b.i.d.-but denied advanced cardiac history, or afib, tachycardia, or CHF. Denies previous risk stratification workup. * Based on this ordered an echo, and BNP * Monitor tele Lactic acidosis, acute, present on admission * Initial lactate 3.1- will trend * Procalcitonin negative * Suspect this is secondary to UTI * NS at 80 cc/HR * Rocephin 2 g initiated, continue Rocephin * Monitor for sepsis/septic shock * COVID/influenza a/B/RSV are all negative. * Chest x-ray findings support COPD, possible atelectasis in left lung base. Leukocytosis, neutrophilic, acute, present on admission * WBC 13.6,neut 11,100, mono 1000-trend labs/inflammatory markers * urine culture and blood cultures pending Spiral distal fibula fracture, right, acute, present on admission * Injuries sustained in diagnosis 09/21/2022 * Managed by PCP * Walking boot in place * Manage pain and inflammation * PT/OT consult Cux-[id number]-[id number] type 2 diabetes, with hyperglycemia, resulting in hyperlipidemia, acute on chronic, present on admission * ED: 214 glucose * Patient admitted under diabetic protocols, BS a.c. HS, low carb diet * Hold metformin, use low-dose sliding scale for coverage * Continue lovastatin or replacement Lipitor Obesity, mild, acute on chronic, present on admission * As evidence by BMI 30.3 * dietary consult ordered regarding nutritional education and information for dietary, lifestyle, exercise, and weight changes. * the patient is at much higher risk for medical and surgical complications due to obesity as it relates to chronic illnesses:, and acute illness. The patient's obesity increases the difficulty and complexity of medical and/or surgical interventions, management and increases the chances of poor outcome such as morbidity and mortality as well as impaired wound healing. Code status:Full Surrogate decision maker:Roberta Quintero Daughter DVT/VTE prophylaxis: Lovenox and SCDs left only Disposition: Patient admitted to acute care for further evaluation and cause of leukocytosis/tachycardia/lactic acidosis, suspect this is likely a UTI, patient received fluids and IV antibiotics, continued tachycardia/hypertensive urgency order an echo for cardiac evaluation risk stratification. Expected length of stay to exceed 2 midnights. I have utilized all available immediate resources to obtain, update, or review the patient's current medications. I confirmed that the patient's advanced care plan is present, Code status is documented and/or surrogate decision maker is listed in the patient's medical record. I have personally reviewed patient's chart notes from PCP, specialists, diagnostic imaging, and laboratory results. Scores SOFA PaO2/FIO2: >=400 mmHg Platelets: >= 150 Bilirubin: < 1.2 mg/dL Hypotension: MAP >= 70 mmHg [place] Coma Scale: 15 Renal: < 1.2 mg/dL SOFA Score: 0
[2022-09-25 03:55] LABS: NT-proBNP (BNP-Adult 18+) 577 pg/mL (<125)
--- NOTE | 2022-09-25 04:27 | DI.ECHO.S_ITS ---
[facility]---------+ [facility] +---------+ : : [address] : [place] : : : : [id number] : : : : Phone: [phone]+ Echocardiogram Report + + :Name: ROBERT ADAME Study Date: 09/25/2022 Height: 73 in : :[facility] ReadingLocation: Weight: 233 lb : : Gender: Male BSA: 2.3 m2 : :: 1950 Age: 72 yrs BP: 147/76 mmHg: :Reason For Study: TACHYCARDIA : :Ordering Physician: HALIMA, : :CHACHA Performed By: Jenifer Pierre : :Referring: CHACHA VARGHESE : + + Interpretation Summary 1) Normal left ventricular thickness, size, wall motion, and systolic function (EF 60-65%). 2) Normal right ventricular size and function. 3) No significant valvular abnormalities. 4) No prior Echo available for comparison. Procedure: A two-dimensional transthoracic echocardiogram with color flow and Doppler was performed. The study quality was technically adequate. There is no prior echocardiogram noted for this patient. The patient was in sinus rhythm with heart rates between 67-77 bpm during the exam. Left Ventricle: The left ventricle is normal in size and wall thickness. The ejection fraction is estimated to be 60-65%. Left ventricular systolic function appears normal without focal wall motion abnormalities. Right Ventricle: The right ventricle is normal in size and function. Atria: The left atrial size is normal. Right atrial size is normal. There is no Doppler evidence for an interatrial shunt. Mitral Valve: The mitral valve is normal in structure and function. There is trace mitral regurgitation. Aortic Valve: The aortic valve is trileaflet. The aortic valve opens well. There is no aortic valve stenosis. No aortic regurgitation is present. Tricuspid Valve: The tricuspid valve is normal in structure and function. There is trace tricuspid regurgitation. Pulmonic Valve: The pulmonic valve is not well visualized. There is no pulmonic valvular regurgitation. Great Vessels: The aortic root is normal size. The dimensions of the ascending aorta are normal. The IVC is dilated (diameter is greater than 2.1 cm) yet it collapses greater than 50% with a sniff. This suggests a right atrial pressure of 8 mm Hg. Pericardium/ Pleura There is no pericardial effusion. There is no pleural effusion. MMode/2D Measurements & Calculations LVIDd: 5.3 cm LVOT diam: 2.4 cm LVIDs: 3.5 cm Ao root diam: 4.0 cm FS: 34.2 % asc Aorta Diam: 3.6 cm IVSd: 1.1 cm Ao Arch Diam (Prox Trans): 2.9 cm LVPWd: 0.83 cm LV parra. diameter/BSA (cm/m^2): 2.3 LV sys. diameter/BSA (cm/m^2): 1.5 LA A2 area: 19.4 cm2 RA long axis: 4.6 cm LA A4 area: 15.8 cm2 RA area: 17.2 cm2 LA length (vol): 4.7 cm RA vol: 55.4 ml LA vol: 55.2 ml RA : 24.1 ml/m2 LA vol index: 24.1 ml/m2 IVC diam: 2.5 cm RVD1 (basal): 3.7 cm RVD2 (mid): 3.5 cm TAPSE: 2.0 cm Doppler Measurements & Calculations Ao V2 max: 139.6 cm/sec LVOT Max Munir: 97.8 cm/sec Ao V2 mean: 96.6 cm/sec LV V1 max P.8 mmHg Ao max P.8 mmHg LV V1 VTI: 23.0 cm Ao mean P.2 mmHg DL(I,D): 3.7 cm2 Ao V2 VTI: 29.1 cm DL(V,D): 3.3 cm2 sev ratio: 0.79 DL indexed to BSA (cm^2/m^2): 1.6 MV E max munir: 99.9 cm/sec PA V2 max: 101.0 cm/sec MV A max munir: 118.9 cm/sec PA V2 mean: 75.6 cm/sec MV E/A: 0.84 PA mean P.5 mmHg Med Peak E' Munir: 4.0 cm/sec E/E' med: 24.8 Lat Peak E' Munir: 6.7 cm/sec E/E' lat: 14.9 E/e' average: 19.8 MV dec time: 0.16 sec SV(LVOT): 107.4 ml Reading Physician:11:23 AM
[2022-09-25] MEDS: METOPROLOL IR 25 MG TABLET PO (04:30)
[2022-09-25] MEDS: SODIUM CHLORIDE 0.9% 1,000 ML 80 ML IV (04:30)
[2022-09-25 06:01] LABS: Add Manual Diff / Slide Review NO; Basophils Absolute Auto 0 /uL (0-100); Basophils Percent Auto 0.3 % (0-2); Eosinophils Absolute Auto 0 /uL (0-450); Eosinophils Percent Auto 0.4 % (2-4); Hematocrit 38.8 % (41-53); Hemoglobin 13.5 g/dL (13.5-17.5); Lymphocytes Absolute Auto 1900 /uL (1100-4500); Lymphocytes Percent Auto 19.1 % (25-40); Mean Corpuscular HGB Conc 34.9 % (30-36); Mean Corpuscular Hemoglobin 30.6 PG (26-34); Mean Corpuscular Volume 87.8 fL (80-100); Monocytes Absolute Auto 1000 /uL (0-900); Monocytes Percent Auto 9.9 % (3-14); Neutrophils Absolute Auto 7000 /uL (1500-7000); Neutrophils Percent Auto 70.3 % (50-75); Platelet Count 206 X10^3/uL (150-400); Red Blood Cell Count 4.43 X10^6/uL (4.5-5.9); Red Cell Distribution Width 14.7 % (11.6-14.8)
[2022-09-25 06:09] LABS: Cholesterol 117 mg/dL (140-199); HDL Cholesterol 40 mg/dL (40-60); HEMOLYSIS < 15 (0-50); LDL Cholesterol Calculated 62 mg/dL (<100); Potassium 3.5 mmol/L (3.4-5.1); Triglycerides 73 mg/dL (35-150)
[2022-09-25 06:10] LABS: BUN Creatinine Ratio 17.7 (6-22); Blood Urea Nitrogen 14 mg/dL (9-20); Calcium 8.3 mg/dL (8.4-10.2); Carbon Dioxide 23 mmol/L (22-32); Chloride 103 mmol/L (98-107); Estimated Glomerular Filt Rate > 60 mL/min (>60); Glucose 124 mg/dL (80-110); Magnesium 1.9 mg/dL (1.6-2.3); Sodium 134 mmol/L (137-145)
[2022-09-25 06:21] LABS: Troponin I < 0.012 ng/mL (0.01-0.034)
[2022-09-25] MEDS: ENOXAPARIN 40 MG/0.4 ML SYRINGE SUBCUT (08:35)
[2022-09-25] MEDS: TAMSULOSIN 0.4 MG CAPSULE PO (08:35)
[2022-09-25] MEDS: METOPROLOL IR 50 MG TABLET PO ×2 (08:35→20:16)
[2022-09-25] MEDS: lisinopriL 5 MG TABLET PO (08:35)
--- NOTE | 2022-09-25 09:11 | P.DS_ITS ---
History of Present Illness History of Present Illness Date Patient Seen: 09/25/22 Time Patient Seen: 09:11 Chief complaint: Urinary retention, tachy, lactic acidosis, HTN Urg Narrative: Per admitting provider, Kem Huitron is a 72-year-old male with a past medical history of HTN, HLD, NIDDM who has presented to the emergency department 3 times this week and twice in the past 24 hrs. ?He initially presented with right ankle pain and injury, spiral distal fibular fracture on September 21, in a walking boot. He then demonstrated while in ED some urinary retention and constipation and was seen this morning in the ED. A Carbajal catheter was placed. Urinalysis this morning was negative vitals were stable, and he had a large bowel movement in the department he was discharged home to follow up with Urology as an outpatient.? Tonight he returned c/o increased weakness and extreme fatigue.?In Ed he was found to be quite tachycardic heart rate in the 118, HTN urgency 213/111, 194/105 Patient received 2 L of fluid and a g of Rocephin in ED. On admit patient complains of mild shortness of breath with continued feeling of pounding from tachycardia, has had some mild chills on and off noticed urinary retention this morning, and was lightheaded when he got up to transfer to the bed. Denies chest pain, headache, changes in vision, difficulty swallowing, speech impairment, numbness, tingling, head injury, LOC, fever, body aches, cough, recent exposure to illness, abdominal pain, nausea, vomiting, dysuria, frequency, urgency, hematuria, stool incontinence, melena, rashes, recent changes to medication, illness or trauma. Denies any trauma to spine or head. His ankle is painful.? He is from [place] currently living on his boat. He denie s any personal or family history of atrial fibrillation or tachycardia, no personal history of any cardiac issues, work up, surgery or treatment. On admit BP has improved temp 97?, 165/74, continues to be mildly tachycardic 103, 22, O2 sat 97% on room air. Notable WBC 13.6, neut 11,100, mono 1000, sodium 131, blood sugar 214, lactate 3.1, procalcitonin is negative, urinalysis positive for ketones glucose leukocytes and WBC-culture pending, blood culture pending, COVID/influenza a/B/RSV are all negative. Chest x-ray findings support COPD, possible atelectasis in left lung base. Patient is admitted for acute urinary retention, tachycardia, lactic acidosis, hypertensive urgency. Discharge Providers Provider Date of admission: 09/25/22 03:24 Discharge Date: 09/25/22 Primary care physician: Jonah Godinez MD Consults: 09/25/22 03:30 Consult to Dietitian, Adult Routine Comment: Reason For Exam: BMI 30 Consult to Occupational Therapy Evaluate & Treat Comment: Physician Instructions: Evaluate and treat Consult to Physical Therapy Evaluate & Treat Comment: Physician Instructions: Evaluate and Treat Discharge provider: Moe Bone DO Summary Hospital Course Discharge Diagnosis: Acute urinary retention, present on admission Tachycardia, acute, present on admission, resolved Hypertensive urgency in the setting essential hypertension, acute on chronic, present on admission Lactic acidosis, acute, present on admission Leukocytosis, neutrophilic, acute, present on admission Spiral distal fibula fracture, right, acute, present on admission Czx-cnfquam-ixkuwalpt type 2 diabetes, with hyperglycemia, resulting in hyperlipidemia, acute on chronic, present on admission Obesity, mild,? acute on chronic, present on admission Hospital Course: Kem Huitron is a 72-year-old male with a past medical history of HTN, HLD, NIDDM, spiral distal fibular fracture on September 21 who has presented to the emergency department 3 times this week and twice in the past 24 hrs. Patient was admitted for acute urinary retention, tachycardia, lactic acidosis, neutrophilic leukocytosis, and hypertensive urgency.?He felt improved the following morning with resumption of his home medications and carbajal catheter placement. He may have an acute cystitis based on UA but is not ill appearing and with vital sign improvements he was agreeable for discharge home. I suspect his vital signs were abnormal in the setting of pain from urinary retention and constipation given quick resolution. He was instructed to follow up with urology as an outpatient given urinary retention. Time Spent with Patient Time spent: Greater than 30 minutes Exam Vital Signs (past 8 hours): - 09/25/22 02:30 09/25/22 03:59 09/25/22 04:11 Temperature 97.9 F 98.5 F Pulse Rate 103 H 102 H 105 H Respiratory Rate 22 18 24 Blood Pressure 165/74 H 162/84 H 176/104 H Pulse Oximetry 97 98 97 Oxygen Delivery Method Room Air Room Air Oxygen Flow Rate 0 09/25/22 08:35 09/25/22 09:00 Temperature 97.3 F L Pulse Rate 81 81 Respiratory Rate 17 Blood Pressure 147/76 H 147/76 H Pulse Oximetry 98 Oxygen Delivery Method Oxygen Flow Rate 0 Oxygen Delivery Method Room Air Oxygen Flow Rate 0 Narrative Exam Narrative: General: Patient is a well-developed, well-nourished elderly male in mild discomfort, but no acute distress at this time. HEENT: Normocephalic, atraumatic, extraocular muscles intact, oral pharynx is clear and mucous membranes are moist. Neck is supple and symmetric, trachea is midline, no adenopathy, no thyroid enlargement, nontender, no masses palpated. Negative for JVD Chest: Normal AP diameter and contour without kyphoscoliosis, Equal chest rise without nasal flaring, retractions, tachypneic or labored breathing. Lungs: Auscultation of all lung velasco are clear without adventitious sounds, wheezes, rhonchi, or rales. Cardio: regular tachycardic rate and rhythm without murmur, rubs, or gallops, no carotid bruit, no cardiac pulsations present. Abdomen: Soft nontender, negative for organomegaly, or masses. Bowel sounds are present in all 4 quadrants without guarding or rebound, no CVA tenderness. Musculoskeletal: Muscle strength and tone are equal, no deformity, crepitus, effusions, cyanosis, clubbing present. Noted trace left ankle nonpitting edema- baseline. Right foot is in a walking boot. Full range of motion intact radial and pedal pulses are normal. Skin: Warm dry and intact without rashes, ulcerations or petechiae. Neuro: Alert and orientated x3, moves all extremities, sensation to touch intact, no gross deficits noted of cranial nerves. Psych: Patient has a well-kept appearance, appropriate affect, mental status attitude thought context and judgment are appropriate for age. Objective Labs 09/25/22 05:14 09/25/22 05:14 Labs: Laboratory Results - last 24 hr 09/24/22 09/24/22 09/24/22 23:30 23:30 23:30 WBC 13.6 H RBC 4.69 Hgb 14.3 Hct 41.2 MCV 87.8 MCH 30.4 MCHC 34.7 RDW 14.5 Plt Count 222 Neut % (Auto) 81.6 H Lymph % (Auto) 10.1 L Wilkinson % (Auto) 7.6 Eos % (Auto) 0.1 L Baso % (Auto) 0.6 Neut # (Auto) 86430 H Lymph # (Auto) 1400 Wilkinson # (Auto) 1000 H Eos # (Auto) 0 Baso # (Auto) 100 PT 13.0 H INR 1.1 APTT 31 Sodium 131 L Potassium 4.1 Chloride 97 L Carbon Dioxide 23 BUN 16 Creatinine 0.87 Estimated GFR > 60 BUN/Creatinine Ratio 18.4 Glucose 214 H Lactate Calcium 9.1 Magnesium 1.9 Total Bilirubin 0.9 AST 24 ALT 29 Alkaline Phosphatase 113 Total Creatine Kinase 86 Troponin I < 0.012 NT-Pro-B Natriuret Pep Total Protein 7.6 Albumin 4.1 Globulin 3.5 Albumin/Globulin Ratio 1.2 Triglycerides Cholesterol LDL Cholesterol, Calc HDL Cholesterol Lipase 45 Procalcitonin Urine Color Urine Appearance Urine pH Ur Specific [place] Urine Protein Urine Glucose (UA) Urine Ketones Urine Occult Blood Urine Nitrate Urine Bilirubin Urine Urobilinogen Ur Leukocyte Esterase Urine RBC Urine WBC Ur Squamous Epith Cells Urine Bacteria Ur Culture Indicated? SARS-CoV-2 (PCR) Influenza A (RT-PCR) Influenza B (RT-PCR) RSV (PCR) 09/24/22 09/24/22 09/24/22 23:30 23:30 23:30 WBC RBC Hgb Hct MCV MCH MCHC RDW Plt Count Neut % (Auto) Lymph % (Auto) Wilkinson % (Auto) Eos % (Auto) Baso % (Auto) Neut # (Auto) Lymph # (Auto) Wilkinson # (Auto) Eos # (Auto) Baso # (Auto) PT INR APTT Sodium Potassium Chloride Carbon Dioxide BUN Creatinine Estimated GFR BUN/Creatinine Ratio Glucose Lactate 3.1 H Calcium Magnesium Total Bilirubin AST ALT Alkaline Phosphatase Total Creatine Kinase Troponin I NT-Pro-B Natriuret Pep 577 H Total Protein Albumin Globulin Albumin/Globulin Ratio Triglycerides Cholesterol LDL Cholesterol, Calc HDL Cholesterol Lipase Procalcitonin 0.24 Urine Color Urine Appearance Urine pH Ur Specific [place] Urine Protein Urine Glucose (UA) Urine Ketones Urine Occult Blood Urine Nitrate Urine Bilirubin Urine Urobilinogen Ur Leukocyte Esterase Urine RBC Urine WBC Ur Squamous Epith Cells Urine Bacteria Ur Culture Indicated? SARS-CoV-2 (PCR) Influenza A (RT-PCR) Influenza B (RT-PCR) RSV (PCR) 09/24/22 09/25/22 09/25/22 23:56 00:10 01:33 WBC RBC Hgb Hct MCV MCH MCHC RDW Plt Count Neut % (Auto) Lymph % (Auto) Wilkinson % (Auto) Eos % (Auto) Baso % (Auto) Neut # (Auto) Lymph # (Auto) Wilkinson # (Auto) Eos # (Auto) Baso # (Auto) PT INR APTT Sodium Potassium Chloride Carbon Dioxide BUN Creatinine Estimated GFR BUN/Creatinine Ratio Glucose Lactate 2.0 Calcium Magnesium Total Bilirubin AST ALT Alkaline Phosphatase Total Creatine Kinase Troponin I NT-Pro-B Natriuret Pep Total Protein Albumin Globulin Albumin/Globulin Ratio Triglycerides Cholesterol LDL Cholesterol, Calc HDL Cholesterol Lipase Procalcitonin Urine Color Yellow Urine Appearance Clear Urine pH 5.5 Ur Specific [place] 1.020 Urine Protein 1+ H Urine Glucose (UA) 3+ H Urine Ketones Trace H Urine Occult Blood 3+ H Urine Nitrate Negative Urine Bilirubin Negative Urine Urobilinogen 1.0 Ur Leukocyte Esterase 1+ H Urine RBC 1-5/hpf Urine WBC 5-10/hpf H Ur Squamous Epith Cells None seen Urine Bacteria None seen Ur Culture Indicated? Specimen cultured SARS-CoV-2 (PCR) Negative Influenza A (RT-PCR) Flu a negative Influenza B (RT-PCR) Flu b negative RSV (PCR) Negative 09/25/22 09/25/22 09/25/22 05:14 05:14 05:14 WBC 10.0 RBC 4.43 L Hgb 13.5 Hct 38.8 L MCV 87.8 MCH 30.6 MCHC 34.9 RDW 14.7 Plt Count 206 Neut % (Auto) 70.3 Lymph % (Auto) 19.1 L Wilkinson % (Auto) 9.9 Eos % (Auto) 0.4 L Baso % (Auto) 0.3 Neut # (Auto) 7000 Lymph # (Auto) 1900 Wilkinson # (Auto) 1000 H Eos # (Auto) 0 Baso # (Auto) 0 PT INR APTT Sodium 134 L Potassium 3.5 Chloride 103 Carbon Dioxide 23 BUN 14 Creatinine 0.79 Estimated GFR > 60 BUN/Creatinine Ratio 17.7 Glucose 124 H Lactate Calcium 8.3 L Magnesium 1.9 Total Bilirubin AST ALT Alkaline Phosphatase Total Creatine Kinase Troponin I NT-Pro-B Natriuret Pep Total Protein Albumin Globulin Albumin/Globulin Ratio Triglycerides 73 Cholesterol 117 L LDL Cholesterol, Calc 62 HDL Cholesterol 40 Lipase Procalcitonin Urine Color Urine Appearance Urine pH Ur Specific [place] Urine Protein Urine Glucose (UA) Urine Ketones Urine Occult Blood Urine Nitrate Urine Bilirubin Urine Urobilinogen Ur Leukocyte Esterase Urine RBC Urine WBC Ur Squamous Epith Cells Urine Bacteria Ur Culture Indicated? SARS-CoV-2 (PCR) Influenza A (RT-PCR) Influenza B (RT-PCR) RSV (PCR) 09/25/22 05:14 WBC RBC Hgb Hct MCV MCH MCHC RDW Plt Count Neut % (Auto) Lymph % (Auto) Wilkinson % (Auto) Eos % (Auto) Baso % (Auto) Neut # (Auto) Lymph # (Auto) Wilkinson # (Auto) Eos # (Auto) Baso # (Auto) PT INR APTT Sodium Potassium Chloride Carbon Dioxide BUN Creatinine Estimated GFR BUN/Creatinine Ratio Glucose Lactate Calcium Magnesium Total Bilirubin AST ALT Alkaline Phosphatase Total Creatine Kinase Troponin I < 0.012 NT-Pro-B Natriuret Pep Total Protein Albumin Globulin Albumin/Globulin Ratio Triglycerides Cholesterol LDL Cholesterol, Calc HDL Cholesterol Lipase Procalcitonin Urine Color Urine Appearance Urine pH Ur Specific [place] Urine Protein Urine Glucose (UA) Urine Ketones Urine Occult Blood Urine Nitrate Urine Bilirubin Urine Urobilinogen Ur Leukocyte Esterase Urine RBC Urine WBC Ur Squamous Epith Cells Urine Bacteria Ur Culture Indicated? SARS-CoV-2 (PCR) Influenza A (RT-PCR) Influenza B (RT-PCR) RSV (PCR) [facility] Medical History Essential hypertension Hyperlipidemia due to type 2 diabetes mellitus Non-insulin dependent diabetes mellitus Surgical History (Updated 09/25/22 @ 04:29 by BEENA Thapa) History of cholecystectomy Family History (Updated 09/25/22 @ 04:30 by BEENA Thapa) Mother Diabetes mellitus Hypertension Father Diabetes mellitus Hypertension History of open heart surgery Heart attack Social History (Updated 09/25/22 @ 04:30 by BEENA Thapa) Smoking Status: Never smoker alcohol intake: never substance use type: does not use Discharge Plan Discharge Plan Patient Disposition: Home Provider Discharge Comment: You were admitted to the hospital with urinary retention and abnormal vital signs. These vitals were likely elevated due to pain, there is a possible urinary infection for which you can complete antibiotics at home. Discharge orders & Medications Prescriptions: New levofloxacin 750 mg tablet 750 mg PO DAILY 5 Days Qty: 5 0RF Continued metformin 500 mg tablet 500 mg PO DAILY lisinopril 5 mg tablet 5 mg PO DAILY lovastatin 10 mg tablet 10 mg PO DAILY sildenafil 25 mg tablet 25 mg PO DAILY PRN Rx Instructions: administer 30 minutes to 4 hours before activity tamsulosin [Flomax] 0.4 mg capsule 0.4 mg PO DAILY Qty: 30 0RF metoprolol tartrate 50 mg tablet 50 mg PO BID Patient Comments: TAKE ONE TABLET BY MOUTH TWICE DAILY. Follow up/Referrals: Jonah Godinez MD [Primary Care Provider] - Diet/Activity/Treatments Diet: Diet as Tolerated, Regular and Carb-consistent/Diabetic Activity: As tolerated Visit Report/Discharge Packet Stand Alone Forms: Patient Portal/API, Stroke Signs & Symptoms Discharge Data Primary Care Provider: Jonah Godinez
[2022-09-25] MEDS: levoFLOXacin 250 MG TABLET 750 MG PO (10:23)
--- NOTE | 2022-09-25 10:42 | OT.IP.EVAL ---
Current Diagnoses Urinary tract infection, site not specified (09/25/22) Past Medical History (Last Reviewed 09/25/22 @ 03:46 by BEENA Thapa) Essential hypertension Hyperlipidemia due to type 2 diabetes mellitus Non-insulin dependent diabetes mellitus Surgical History (Last Updated 09/25/22 @ 04:29 by BEENA Thapa) History of cholecystectomy Occupational Therapy Inpatient Evaluation/Re-Eval M1 PT/OT-IP Prior Functional Status Start: 09/25/22 10:04 Freq: NEEDED Status: Active Protocol: Document 09/25/22 11:26 AMB (Rec: 09/25/22 11:43 AMB [id number]) Medical Review Prior Functional Status Medical History Reviewed Yes Mobility and Gait pt reports using SPC for long distances Social History Household Members none Living Arrangements Other Number of Floors (Floors) One floor- pt lives on a boat Number of Stairs To Enter/Railing? 2 stairs with railing, then another 2 stairs Home Equipment Straight Cane Additional Social History Comment Pt lives on his boat, reports he has friends next boat over (about 15' away) M1 PT/OT-IP Prior Functional Status Start: 09/25/22 14:15 Freq: NEEDED Status: Active Protocol: Document 09/25/22 10:42 CCC (Rec: 09/25/22 14:33 [facility] [id number]) Medical Review Prior Functional Status Medical History Reviewed Yes Communication independent Mobility and Gait pt reports using SPC for long distances Activities of Daily Living and IADL's independent Social History Household Members none Living Arrangements Other Number of Floors (Floors) One Floor Number of Stairs To Enter/Railing? 2 steps with bilateral rails to get into the boat and 2 steps with bilateral rails to the main area. Home Environment Standard Height Toilet Home Equipment Straight Cane M2 OT-IP Current Condition Start: 09/25/22 14:15 Freq: Status: Active Protocol: Document 09/25/22 10:42 CCC (Rec: 09/25/22 14:33 [facility] [id number]) Occupational Therapy Current Condition Current Condition Evaluation Date 09/25/22 Treatment Diagnosis Urinary retention, S/P spiral distal fibular fracture Diagnosis Onset Date 09/25/22 Weight Bearing Status Weight Bearing Status Non-Weight Bearing Allowed Weight Bearing Amount (enter % Able to touch base with or #) (%) hospitalist and able to clarify with ortho that pt is NWB until his follow up appointment with ortho.Currently pt has a walking boot on. M3 OT- IP Subjective and Pain Start: 09/25/22 14:15 Freq: Status: Active Protocol: Document 09/25/22 10:42 [facility] (Rec: 09/25/22 14:33 [facility] [id number]) OT- Subjective Occupational Therapy Visit Type Type Initial Evaluation Visit Start Time 10:42 Visit Stop Time 13:45 Total Visit Minutes 103 Occupational Therapy Visit Comments Patient Comments Pt wanting to use the bathroom . Patient/Caregiver Goals TO get better and go home. After clarification from hospitalist for Ortho, pt is now NWB to RLE. OT Pain Assessment Pain When Pain Assessed At Rest Pain Present Pain Present Denied Pain M4 OT- IP ADL's Start: 09/25/22 14:15 Freq: Status: Active Protocol: Document 09/25/22 10:42 [facility] (Rec: 09/25/22 14:33 [facility] [id number]) OT NJH-Nmdd-Spwanbl General Evaluation Self-Feeding Ability Independent OT ADL-Grooming General Evaluation Grooming Ability Independent OT ADL-Dressing General Eval Lower Body Dressing Ability Maximum Assistance Comments OT Dressing Comments Assist to help get clothing over his feet and up over his hips due to NWB for RLE. OT ADL-Toileting General Evaluation Toileting Ability Maximum Assistance Areas Needing Assistance Manage Clothing,Perform Perineal Hygiene Comments OT Toileting Comments At this time would be safer for to have a BSC or transfer from to toilet due to NWB status of RLE. Pt needing assist for completeness and clothing management needs. OT ADL-Bathing Comments OT Bathing Comments Pt will benefit from a tub bench or just sponge off for now. M5 OT- IP IADL's Start: 09/25/22 14:15 Freq: Status: Active Protocol: Document 09/25/22 10:42 [facility] (Rec: 09/25/22 14:33 [facility] [id number]) OT-Instrumental Activities of Daily Living Deficits IADL Deficits Identified Deficits Home Safety Awareness Awareness of Need for Assistance at Home Good Awareness Ability to Problem Solve Emergency Able to Problem Solve Situations M6 OT- IP Functional Cognition Start: 09/25/22 14:15 Freq: Status: Active Protocol: Document 09/25/22 10:42 [facility] (Rec: 09/25/22 14:33 [facility] [id number]) Cognitive Factors Limiting Selfcare Function Cognitive Ability Level of Alertness Alert Patient Orientation Name,Age,Birthday,Month,Date, Year,Day of Week,Place, Situation Attention Span Ability Capable of Focused Attention, Capable of Sustained Attention Ability to Follow Commands Able to Follow Multi-Step Commands Cognitive Comments Cognitive Assessment Comments Pt able to follow commands for ADL and IADl needs. Pt initially thinking that he will drive home and then agreed that he would not especially now that he is NWB to RLE. Pt score 96 seconds on [place] Making Part B which implies mild impairments for visual attention, speed of processing, task switching, executive functioning, and mental flexibility. OT- Vision and Hearing OT- Hearing Assessment OT- Hearing Assessment WFL OT- Vision Assessment Visual Acuity Glasses All The Time Visual Attentiveness WFL Occular Pursuits WFL Visual Convergence WFL Visual Gonsalez WFL M7 OT- IP Mobility and Balance Start: 09/25/22 14:15 Freq: Status: Active Protocol: Document 09/25/22 10:42 [facility] (Rec: 09/25/22 14:33 [facility] [id number]) OT- Bed Mobility Assessment Supine to Sit Supine to Sit Assist Standby Assistance Sit to Supine Sit to Supine Assist Standby Assistance OT-Transfer Assessment Sit to and From Stand Sit to and from Stand Minimal Assistance,Moderate Assistance Transfers Transfer Ability Minimal Assistance Technique Transfer Destination Bed,Bedside Commode,Toilet Transfer Technique Stand Step Pivot Devices Transfer Assistive Devices Gait Belt,Front Wheeled Walker Comments Mobility Comments Pt needing steadying to help come to stand and then able to hop with FWW to the [facility]. OT- Balance Assessment Sitting Balance and Reactions Static Sitting Balance Ability Good Dynamic Sitting Balance Ability Good Standing Balance and Reactions Static Standing Balance Ability Fair Dynamic Standing Balance Ability Poor M9 OT- IP Assessment and Plan Start: 09/25/22 14:15 Freq: Status: Active Protocol: Document 09/25/22 10:42 [facility] (Rec: 09/25/22 14:33 [facility] [id number]) OT Summary Assessment and Plan Potential Rehabilitation Potential Good Analytic Complexity at Evaluation Moderate Summary OT Impairments Pain,Balance,Functional Mobility,Dressing,Toileting, Bathing,Toilet Transfers, Shower Transfers,Activity Tolerance Progress Towards Goals Progressing Toward Goals,Slow Progress due to Medical Issues Assessment Summary Pt MOD complexity and here due to urinary retention and had had S/P RLE spiral distal fibular fx on 09/21/22 and suppose to follow up with orth after x-ray results. Hospitalist able to clarify that pt is NWB for RLE until able to follow up with Ortho at this time. Prior pt had been putting weight and using his RLE with no pain per pt. Pt to go home with 24/7 assist and home health versus skilled rehab pending caregiver training tomorrow. Goals Self-Feeding Goal Independent Grooming Goal Independent Dressing Goal Independent Toileting Goal Independent Bathing Goal Independent Toilet Transfer Goal Independent Shower Transfer Goal Independent Days to Meet Goals 20 Frequency of Treatment Frequency Of Treatment Once a Day Treatment Plan OT Treatment Plan ADL Training,Functional Mobility,Patient/Family Education,Discharge Planning Other Treatment Recommendations and Next caregiver training Treatment Focus Discharge Recommendations OT Discharge Recommendations Home with 24/7 Assist Available,Home Health,SNF Rehab,Home vs SNF Home Equipment Needs WC, FWW, BSC, LB dressing equipment Transportation Needs at Discharge Private Vehicle,Wheelchair/ Cabulance
--- NOTE | 2022-09-25 12:27 | CM.DANOTE ---
Initial DCP Assessment Note Pt is a 72 yo male, resident of [place], patient traveling on his boat for 2 weeks, presents with ankle fx (non-weight bearing), acute urinary retention, HTN, afib, weakness/fatigue Patient much improved today and has been discharged on levofloxacin, encouraged to follow up w/Orthopedist and Urology PCP: Jonah Godinez Payer: [facility] Reviewed chart, pt discussed in multidisciplinary rounds this morning. Therapy has cleared pt for return home however patient has a boot on his right leg and is non-weight bearing status per Ortho. Met w/patient this morning to introduce self and role. Patient says he has been on his boat for about a week. Patient anticipates returning to the boat just fine and has many friends in [place] to assist as needed. Patient denies needs from this [employer] No barriers identified at this time to patient's safe discharge home w/friends to assist; close outpatient f/u recommended. VITOR Garcia Discharge Planning/Care Management CM Discharge Assessment Start: 09/25/22 12:22 Freq: Status: Active Protocol: Document 09/25/22 12:22 JAYCE (Rec: 09/25/22 12:27 JAYCE [id number]) Discharge Planning Assessment Assigned [employer] Supervisor VITOR Akbar DPOA/Assigned Designee Name Roberta Shoemaker, daughter ( Jennifer) Contact Information [phone] Advance Directives? No Advance Directives on File No History Provided By Patient,Medical Record Prior Living Arrangements Other Comment Living on his boat for the next week Household Members none Independent with ADL's Yes Is patient alert and oriented? Yes Barriers to Discharge No Discharge Plan Home Transportation Arrangement Friend to transport Referrals Initiated None needed
--- NOTE | 2022-09-25 16:12 | PT.IIE ---
Addendum entered and electronically signed by Bernice Lima, PT 09/25/22 16:16: MD signature needed Original Note: Current Diagnoses Urinary tract infection, site not specified (09/25/22) Surgical History (Last Updated 09/25/22 @ 04:[address] [facility]) History of cholecystectomy Medical History (Last Reviewed 09/25/22 @ 03:[address] [facility]) Essential hypertension Hyperlipidemia due to type 2 diabetes mellitus Non-insulin dependent diabetes mellitus Physical Therapy Inpatient Evaluation/Re-Eval M1 PT/OT-IP Prior Functional Status Start: 09/25/22 10:04 Freq: NEEDED Status: Active Protocol: Document 09/25/22 11:26 AMB (Rec: 09/25/22 11:43 AMB [id number]) Medical Review Prior Functional Status Medical History Reviewed Yes Mobility and Gait pt reports using SPC for long distances Social History Household Members none Living Arrangements Other Number of Floors (Floors) Two Floors Number of Stairs To Enter/Railing? 2 stairs with railing, then another 2 stairs Home Equipment Straight Cane Additional Social History Comment Pt lives on his boat, reports he has friends next boat over (about 15' away) M1 PT/OT-IP Prior Functional Status Start: 09/25/22 14:15 Freq: NEEDED Status: Active Protocol: Document 09/25/22 10:42 CCC (Rec: 09/25/22 14:33 CCC [id number]) Medical Review Prior Functional Status Medical History Reviewed Yes Communication independent Mobility and Gait pt reports using SPC for long distances Activities of Daily Living and IADL's independent Social History Household Members none Living Arrangements Other Number of Floors (Floors) One Floor Number of Stairs To Enter/Railing? 2 steps with bilateral rails to get into the boat and 2 steps with bilateral rails to the main area. Home Environment Standard Height Toilet Home Equipment Straight Cane M2 PT-IP Current Condition Start: 09/25/22 10:04 Freq: NEEDED Status: Active Protocol: Document 09/25/22 11:26 AMB (Rec: 09/25/22 11:43 AMB [id number]) Physical Therapy Current Condition Current Condition Evaluation Date 09/25/22 Treatment Diagnosis R spiral fibula fracture, tachycardia, urinary retention Onset Date 09/24/22 M3 PT-IP Subjective Start: 09/25/22 10:04 Freq: NEEDED Status: Active Protocol: Document 09/25/22 11:26 AMB (Rec: 09/25/22 11:43 AMB [id number]) Subjective Physical Therapy Visit Type Type Initial Evaluation Visit Start Time 11:00 Visit Stop Time 11:30 Total Visit Minutes 30; 60 Notes Originally saw patient in AM session, then with change of weight bearing status returned from 12:30-1:30 Therapy Pain Assessment Pain When Pain Assessed At Rest Pain Present Pain Present Pain Reported Location Right Foot Intensity 1 Scale Used Numeric (0 - 10) M4 PT-IP Mobility and Gait Start: 09/25/22 10:04 Freq: NEEDED Status: Active Protocol: Document 09/25/22 11:26 AMB (Rec: 09/25/22 11:43 AMB [id number]) PT-Bed Mobility Assessment Rolling Type of Rolling Log Rolling,Roll to Right Level of Assist Standby Assistance Supine to Sit Supine to Sit Standby Assistance PT-Transfer Assessment Sit to and From Stand Sit to and from Stand Standby Assistance,Minimal Assistance,1 Person Assistance ,Use of Upper Extremities Equipment Transfer Assistive Device Gait Belt,Front Wheeled Walker Transfers Transfer Destination Bed,Bedside Commode Transfer Technique Stand Pivot Transfer Ability Level of Assist Contact Guard Assistance Comments Mobility Comments When patient is non- weightbearing, he struggles to move from sit to stand but can with Marjorie with FWW. Transferred to bedside commode for bowel movement with Marjorie. Gait Assessment Gait Gait Assistance Required: Minimum Assistance,1 Person Assist Distance (Feet) 10 Assistive Devices Assistive Device Gait Belt,Straight Cane Gait Deviations General Gait Pattern Antalgic,Wide Based Gait Factors Limiting Gait Function Factors Limiting Gait Function Decreased Activity Tolerance, Decreased Strength,Pain Comments Gait Comments In the morning session, Kem walked 150' in his walking boot with a SPC. In the afternoon session once ortho clarified that he was non- weightbearing after therapy asked hospitalist to clarify orders we tried to ambulate with FWW. Pt was able to ambulate about 10' with CGA. Very challenging. Stair Climbing Assessment Evaluation Level of Assist On Stairs 1 Person Assistance Devices Stair Climbing Assistive Devices Left Railing,Right Railing Technique/Endurance Stair Climbing Technique Step to Step Comments Stair Climbing Comments In morning session pt was able to ambulate 150' and ascend 3 stairs with CGA when he was weightbearing through his R LE . Pt unable to perform stairs when nonweightbearing at eval . M7 PT-IP Assessment and Plan Start: 09/25/22 10:04 Freq: NEEDED Status: Active Protocol: Document 09/25/22 11:26 AMB (Rec: 09/25/22 11:43 AMB [id number]) PT Summary Assessment and Plan Potential Rehabilitation Potential Good Status of Condition at Evaluation Stable Summary Impairments Pain,Strength,Balance,Bed Mobility,Transfers,Gait, Activity Tolerance Assessment Summary At first session, with orders to ambulate as tolerated, pt ambulated with walking boot and SPC 200' and was able to ascend and descend stairs. However, upon further clarification with physician ( and physician called ortho) patient should actually be non weightbearing through the R foot due to fibular fracture from 09/21. Patient has been ambulating since being seen in walk in clinic. Discussed case with patient and patient' s daughter via cell phone. Once patient non weightbearing he struggled to ambulate more than 10' with walker. Extensive time spent with patient discussing discharge plan. SNF vs home with friend (friend has 4 steps to enter but then single story). Pt interested in SNF but concern if insurance would cover that. PT to complete caregiver training tomorrow (hopefully GI issues will be better at that point, pt was constipated in ER and now has the opposite problem likely from all the stool softeners). Caregiver training to work on stairs (non weightbearing R LE ). If pt cannot possibly ascend stairs would consider SNF. Family shoulder consider bedside commode, transfer chair vs wheelchair from [facility] (open on Fridays), we may need to vend FWW vs family purchasing if pt can stay at friends house. If not safe on stairs then would recommend SNF. Goals Bed Mobility Goal Standby Assistance Transfer Goal Standby Assistance Gait Goal Standby Assistance Gait Distance 200 Other Goals 2 Stairs ascend descend step to with 1 railing Frequency of Treatment Frequency Of Treatment Once a Day Treatment Plan Physical Therapy Treatment Plan Bed Mobility Training,Transfer Training,Gait Training, Therapeutic Exercise Other Recommendations and Next Treatment Caregiver training, stair Focus training Precautions Brace Walking boot Weight Bearing Status Weight Bearing Status Non-Weight Bearing Allowed Weight Bearing Amount (enter % Walking boot or #) (%) Recommendations To Nursing Amount of Assist Needed 1 Person Assist Discharge Recommendations PT Discharge Recommendations Home with 24/7 Assist Available,SNF Rehab Other Discharge Recommendations commode, FWW Equipment Needed for Home Before FWW Discharge Transportation Needs at Discharge Private Vehicle
[2022-09-25] MEDS: ATORVASTATIN 20 MG TABLET 10 MG PO (20:16)
[2022-09-25] MEDS: SENNOSIDES 8.6 MG TABLET 17.2 MG PO (20:16)
[2022-09-25] MEDS: MELATONIN 3 MG TABLET 9 MG PO (21:27)
[2022-09-26 03:20] VITALS: BP 150/82; PULSE 78; RESP 16; TEMP 36.9; O2SAT 93
[2022-09-26 05:39] LABS: Add Manual Diff / Slide Review NO; Basophils Absolute Auto 0 /uL (0-100); Basophils Percent Auto 0.4 % (0-2); Eosinophils Absolute Auto 100 /uL (0-450); Eosinophils Percent Auto 1.5 % (2-4); Hematocrit 38.7 % (41-53); Hemoglobin 13.5 g/dL (13.5-17.5); Lymphocytes Absolute Auto 1900 /uL (1100-4500); Mean Corpuscular Hemoglobin 30.6 PG (26-34); Mean Corpuscular Volume 87.6 fL (80-100); Monocytes Absolute Auto 800 /uL (0-900); Monocytes Percent Auto 9.5 % (3-14); Neutrophils Absolute Auto 5900 /uL (1500-7000); Neutrophils Percent Auto 66.6 % (50-75); Platelet Count 197 X10^3/uL (150-400); Red Blood Cell Count 4.42 X10^6/uL (4.5-5.9); Red Cell Distribution Width 14.1 % (11.6-14.8); White Blood Cell Count 8.8 X10^3/uL (4.5-11.0)
[2022-09-26 05:45] LABS: BUN Creatinine Ratio 18.2 (6-22); Blood Urea Nitrogen 16 mg/dL (9-20); Calcium 8.5 mg/dL (8.4-10.2); Carbon Dioxide 24 mmol/L (22-32); Chloride 102 mmol/L (98-107); Estimated Glomerular Filt Rate > 60 mL/min (>60); Glucose 120 mg/dL (80-110); HEMOLYSIS < 15 (0-50); Potassium 3.9 mmol/L (3.4-5.1); Sodium 132 mmol/L (137-145)
[2022-09-26] MEDS: KETOROLAC 10 MG TABLET PO (07:41)
[2022-09-26] MEDS: ACETAMINOPHEN 325 MG TABLET 650 MG PO (07:41)
[2022-09-26 08:00] VITALS: BP 172/83; PULSE 77; RESP 16; TEMP 37.2; O2SAT 93
[2022-09-26 08:18] VITALS: BP 172/83; PULSE 80
[2022-09-26] MEDS: lisinopriL 5 MG TABLET PO ×2 (08:18→12:06)
[2022-09-26] MEDS: TAMSULOSIN 0.4 MG CAPSULE PO (08:18)
[2022-09-26] MEDS: METOPROLOL IR 50 MG TABLET PO (08:18)
[2022-09-26] MEDS: ENOXAPARIN 40 MG/0.4 ML SYRINGE SUBCUT (08:18)
--- NOTE | 2022-09-26 11:40 | OT.IP.TRT ---
Current Diagnoses Urinary tract infection, site not specified (09/25/22) Occupational Therapy Treatment Note M2 OT-IP Current Condition Start: 09/25/22 14:15 Freq: Status: Active Protocol: Document 09/25/22 10:42 [facility] (Rec: 09/25/22 14:33 [facility] [id number]) Occupational Therapy Current Condition Current Condition Evaluation Date 09/25/22 Treatment Diagnosis Urnary retention, S/P spirtal distal fibular fractire Diagnosis Onset Date 09/25/22 Weight Bearing Status Weight Bearing Status Non-Weight Bearing Allowed Weight Bearing Amount (enter % Able to touch base with or #) (%) hospitalist and able to clarify with ortho that pt is NWB until his follow up appointment with ortho. M3 OT- IP Subjective and Pain Start: 09/25/22 14:15 Freq: Status: Active Protocol: Document 09/26/22 13:20 [facility] (Rec: 09/26/22 13:28 [facility] [id number]) OT- Subjective Occupational Therapy Visit Type Type Treatment Note Visit Start Time 11:25 Visit Stop Time 11:40 Total Visit Minutes 15 Occupational Therapy Visit Comments Patient Comments Pt wanting to get dressed and pt's friend present for caregiver training. Patient/Caregiver Goals TO go home. OT Pain Assessment Pain When Pain Assessed At Rest Pain Present Pain Present Denied Pain M4 OT- IP ADL's Start: 09/25/22 14:15 Freq: Status: Active Protocol: Document 09/26/22 13:20 [facility] (Rec: 09/26/22 13:28 [facility] [id number]) OT [id number]-[id number] General Evaluation Self-Feeding Ability Independent OT ADL-Grooming General Evaluation Grooming Ability Independent OT ADL-Dressing General Eval Lower Body Dressing Ability Standby Assistance Comments OT Dressing Comments Pt able to independently roxana his left shoe with increased time. Educated as pt is NWB at time may be easier to do LB dressing while in bed supine, especially to get his pants/ shorts up over his hips. OT ADL-Toileting Comments OT Toileting Comments Not performed. Suggested pt get a BSC for home use. OT ADL-Bathing Comments OT Bathing Comments Pt will benefit from a shower chair. M5 OT- IP IADL's Start: 09/25/22 14:15 Freq: Status: Active Protocol: Document 09/25/22 10:42 [facility] (Rec: 09/25/22 14:33 [facility] [id number]) OT-Instrumental Activities of Daily Living Deficits IADL Deficits Identified Deficits Home Safety Awareness Awareness of Need for Assistance at Home Good Awareness Ability to Problem Solve Emergency Able to Problem Solve Situations M6 OT- IP Functional Cognition Start: 09/25/22 14:15 Freq: Status: Active Protocol: Document 09/26/22 13:20 [facility] (Rec: 09/26/22 13:28 [facility] [id number]) Cognitive Factors Limiting Selfcare Function Cognitive Comments Cognitive Assessment Comments Pt more alert today and now wanting to go back to [place] and to have someone drive him home as in [place] he will have more assist and family there to help him. M7 OT- IP Mobility and Balance Start: 09/25/22 14:15 Freq: Status: Active Protocol: Document 09/26/22 13:20 [facility] (Rec: 09/26/22 13:28 [facility] [id number]) OT-Transfer Assessment Sit to and From Stand Sit to and from Stand Standby Assistance Transfers Transfer Ability Standby Assistance Devices Transfer Assistive Devices Gait Belt,Front Wheeled Walker Comments Mobility Comments SBA to stand and transfer today with FWW. OT- Balance Assessment Sitting Balance and Reactions Static Sitting Balance Ability Good Dynamic Sitting Balance Ability Good Standing Balance and Reactions Static Standing Balance Ability Fair Dynamic Standing Balance Ability Fair M9 OT- IP Assessment and Plan Start: 09/25/22 14:15 Freq: Status: Active Protocol: Document 09/26/22 13:20 [facility] (Rec: 09/26/22 13:28 [facility] [id number]) OT Summary Assessment and Plan Potential Rehabilitation Potential Good Analytic Complexity at Evaluation Moderate Summary OT Impairments Pain,Balance,Functional Mobility,Dressing,Toileting, Bathing,Toilet Transfers, Shower Transfers,Activity Tolerance Progress Towards Goals Progressing Toward Goals Assessment Summary Pt moving much better today and wanting to have friend drive him back to [place] where he has more family to be able to assist with his needs and also better able to follow up with appointments for Urology and Ortho. Goals Dressing Goal Independent Bathing Goal Independent Days to Meet Goals 5 Frequency of Treatment Frequency Of Treatment Once a Day Treatment Plan OT Treatment Plan ADL Training,Functional Mobility,Patient/Family Education,Discharge Planning Discharge Recommendations OT Discharge Recommendations Home with Assistance,Home with 15/10 Assist Available Home Equipment Needs WC, FWW, BSC, shower chair,LB dressing equipment Transportation Needs at Discharge Private Vehicle
--- NOTE | 2022-09-26 11:41 | PT.IPTN ---
Current Diagnoses Urinary tract infection, site not specified (09/25/22) Physical Therapy Treatment Note M2 PT-IP Current Condition Start: 09/25/22 10:04 Freq: NEEDED Status: Active Protocol: Document 09/25/22 11:26 AMB (Rec: 09/25/22 11:43 AMB [id number]) Physical Therapy Current Condition Current Condition Evaluation Date 09/25/22 Treatment Diagnosis R spiral fibula fracture, tachycardia, urinary retention Onset Date 09/24/22 M3 PT-IP Subjective Start: 09/25/22 10:04 Freq: NEEDED Status: Active Protocol: Document 09/26/22 12:12 TS (Rec: 09/26/22 12:25 TS [id number]) Subjective Physical Therapy Visit Type Type Treatment Note Visit Start Time 11:41 Visit Stop Time 12:07 Total Visit Minutes 26 Notes Split treat with OT Number of DIRECTOR OF PHYSICAL SECURITY Visits 1 M4 PT-IP Mobility and Gait Start: 09/25/22 10:04 Freq: NEEDED Status: Active Protocol: Document 09/26/22 12:12 TS (Rec: 09/26/22 12:25 TS [id number]) PT-Bed Mobility Assessment Supine to Sit Supine to Sit Standby Assistance Scooting Scooting to Edge of Bed Standby Assistance PT-Transfer Assessment Sit to and From Stand Sit to and from Stand Standby Assistance,Contact Guard Assistance,1 Person Assistance,Use of Upper Extremities Equipment Transfer Assistive Device Gait Belt,Front Wheeled Walker Comments Mobility Comments Pt found resting in bed, agreeable to PT. Supine to sit SBA with BUE support pushing from bed for uprighting trunk. Sit to stand CGA with FWW boot donned, cued for NWB status on RLE. He ambulated ~ 50' SBA on LLE with FWW, unsteady but no buckling or LOB. He performed stairs x6 Marjorie with R rail support and assist from caregiver, provided cues for step sequencing. Sit to stand from w/c back in room SBA with FWW, more steady when coming up on LLE. Pt was left in bed with caregiver in room, RN notified . Gait Assessment Gait Gait Assistance Required: Standby Assistance,1 Person Assist Distance (Feet) 50 Assistive Devices Assistive Device Gait Belt,Straight Cane Gait Deviations General Gait Pattern Antalgic,Wide Based Gait Factors Limiting Gait Function Factors Limiting Gait Function Decreased Activity Tolerance, Decreased Strength,Pain Comments Gait Comments See mobility comments. Stair Climbing Assessment Evaluation Level of Assist On Stairs 1 Person Assistance Devices Stair Climbing Assistive Devices Right Railing Technique/Endurance Stair Climbing Direction Ascend and Descend Stair Climbing Technique Step Over Step Number of Steps Climbed 6 Comments Stair Climbing Comments See mobility comments. PT-Balance Assessment Sitting Balance and Reactions Static Sitting Balance Ability Good Dynamic Sitting Balance Ability Good Standing Balance and Reactions Static Standing Balance Ability Fair Dynamic Standing Balance Ability Fair M7 PT-IP Assessment and Plan Start: 09/25/22 10:04 Freq: NEEDED Status: Active Protocol: Document 09/26/22 12:12 TS (Rec: 09/26/22 12:25 TS [id number]) PT Summary Assessment and Plan Potential Rehabilitation Potential Good Summary Impairments Pain,Strength,Balance,Bed Mobility,Transfers,Gait, Activity Tolerance Progress Towards Goals Progressing Toward Goals Assessment Summary Pt is progressing well with his mobility this session. He performed sit to stand x1 CGA and x2 SBA with FWW, balance improved coming into standing each attempt. He progressed his gait to ~50' SBA with FWW on LLE only due to NWB status on R side, pt had no buckling or LOB. He perfromed stairs x6 with R handrail assist and caregiver assist on L side, pt with heavy UE support again due to NWB on RLE. PT is recommending return home with assist. Pt is planning on having friend drive him back to [place] where he will have more support from family and can be in his own environment. Pt was dispensed FWW, will try to attain commode etc.. if needed when he returns home. Goals Bed Mobility Goal Standby Assistance Transfer Goal Standby Assistance Gait Goal Standby Assistance Gait Distance 200 Other Goals 2 Stairs ascend descend step to with 1 railing Frequency of Treatment Frequency Of Treatment Once a Day Treatment Plan Physical Therapy Treatment Plan Bed Mobility Training,Transfer Training,Gait Training, Therapeutic Exercise Other Recommendations and Next Treatment Caregiver training, stair Focus training Precautions Brace Walking boot Weight Bearing Status Weight Bearing Status Non-Weight Bearing Allowed Weight Bearing Amount (enter % Walking boot or #) (%) Recommendations To Nursing Amount of Assist Needed 1 Person Assist Discharge Recommendations PT Discharge Recommendations Home with Assistance Other Discharge Recommendations commode, FWW Equipment Needed for Home Before FWW Discharge Transportation Needs at Discharge Private Vehicle
[2022-09-26 12:06] VITALS: BP 194/99
[2022-09-26 13:47] VITALS: BP 173/83; RESP 18; O2SAT 98
--- NOTE | 2022-09-26 14:40 | PM.DS.1 ---
History of Present Illness History of Present Illness Date Patient Seen: 09/26/22 Time Patient Seen: 14:40 Chief complaint: Urinary retention, tachy, lactic acidosis, HTN Urg Narrative: Per admitting provider, Kem Huitron is a 72-year-old male with a past medical history of HTN, HLD, NIDDM who has presented to the emergency department 3 times this week and twice in the past 24 hrs. ?He initially presented with right ankle pain and injury, spiral distal fibular fracture on September 21, in a walking boot. He then demonstrated while in ED some urinary retention and constipation and was seen this morning in the ED. A Ayala catheter was placed. Urinalysis this morning was negative vitals were stable, and he had a large bowel movement in the department he was discharged home to follow up with Urology as an outpatient.? Tonight he returned c/o increased weakness and extreme fatigue.?In Ed he was found to be quite tachycardic heart rate in the 118, HTN urgency 213/111, 194/105 Patient received 2 L of fluid and a g of Rocephin in ED. On admit patient complains of mild shortness of breath with continued feeling of pounding from tachycardia, has had some mild chills on and off noticed urinary retention this morning, and was lightheaded when he got up to transfer to the bed. Denies chest pain, headache, changes in vision, difficulty swallowing, speech impairment, numbness, tingling, head injury, LOC, fever, body aches, cough, recent exposure to illness, abdominal pain, nausea, vomiting, dysuria, frequency, urgency, hematuria, stool incontinence, melena, rashes, recent changes to medication, illness or trauma. Denies any trauma to spine or head. His ankle is painful.? He is from [place] currently living on his boat. He denies any personal or family history of atrial fibrillation or tachycardia, no personal history of any cardiac issues, work up, surgery or treatment. On admit BP has improved temp 97?, 165/74, continues to be mildly tachycardic 103, 22, O2 sat 97% on room air. Notable WBC 13.6, neut 11,100, mono 1000, sodium 131, blood sugar 214, lactate 3.1, procalcitonin is negative, urinalysis positive for ketones glucose leukocytes and WBC-culture pending, blood culture pending, COVID/influenza a/B/RSV are all negative. Chest x-ray findings support COPD, possible atelectasis in left lung base. Patient is admitted for acute urinary retention, tachycardia, lactic acidosis, hypertensive urgency. Discharge Providers Provider Date of admission: 09/25/22 03:24 Discharge Date: 09/26/22 Primary care physician: Jonah Godinez MD Consults: 09/25/22 03:30 Consult to Dietitian, Adult Routine Comment: Reason For Exam: BMI 30 Consult to Occupational Therapy Evaluate & Treat Comment: Physician Instructions: Evaluate and treat Consult to Physical Therapy Evaluate & Treat Comment: Physician Instructions: Evaluate and Treat 09/25/22 14:37 Consult to Occupational Therapy Evaluate & Treat Comment: Physician Instructions: Evaluate and treat FWW for home use Discharge provider: Moe Bone DO Summary Hospital Course Discharge Diagnosis: Acute urinary retention, present on admission with acute cystitis, present on admission. Tachycardia, acute, present on admission Hypertensive urgency in the setting essential hypertension, acute on chronic, present on admission Lactic acidosis, acute, present on admission Leukocytosis, neutrophilic, acute, present on admission Spiral distal fibula fracture, right, acute, present on admission Zev-[id number] type 2 diabetes, with hyperglycemia, resulting in hyperlipidemia, acute on chronic, present on admission Obesity, mild,? acute on chronic, present on admission Hospital Course: Kem Huitron is a 72-year-old male with a past medical history of HTN, HLD, NIDDM, spiral distal fibular fracture on September 21 who had presented to the emergency department 3 times this week and twice in the past 24 hrs. He was initially admitted over concern for tachycardia and elevated blood pressures in the setting of acute urinary retention. His tachycardia improved the following morning after resuming his home beta yesenia and after catheter placement. It is unclear if this was due to discomfort from the urinary retention, holding of his beta yesenia, or a possible cystitis. Urinalysis showed possible UTI and he was started on antibiotics, though cultures are negative at the time of discharge he will complete a 7 day course for possible UTI with levofloxacin. His stay was prolonged after orthopedics was asked for weight bearing recommendations for his spiral distal fibula fracture on the R from 09/21. They recommended non-weight bearing on the R which complicated his plan for return [place] his [place]. Patient continued to work with therapies, and ultimately decided to return home to [place] where his home is more set up to manage non weight bearing status. He will follow up with urology and orthopedics there. He was given an increased dose of home lisinopril give his hypertensive urgency and elevated blood pressures here, though given a lack of symptoms I recommend continued follow up with his PCP for further management of his hypertension. No other changes were recommended to his home medications. Time Spent with Patient Time spent: Greater than 30 minutes Exam Vital Signs (past 8 hours): - 09/26/22 08:18 09/26/22 08:00 09/26/22 12:06 Temperature 98.9 F Pulse Rate 80 77 Respiratory Rate 16 Blood Pressure 172/83 H 172/83 H 194/99 H Pulse Oximetry 93 Oxygen Flow Rate 09/26/22 13:47 Temperature Pulse Rate Respiratory Rate 18 Blood Pressure 173/83 H Pulse Oximetry 98 Oxygen Flow Rate 0 Oxygen Delivery Method Room Air Oxygen Flow Rate 0 Narrative Exam Narrative: General: Patient is a well-developed, well-nourished elderly male in mild discomfort, but no acute distress at this time. HEENT: Normocephalic, atraumatic, extraocular muscles intact, oral pharynx is clear and mucous membranes are moist. Neck is supple and symmetric, trachea is midline, no adenopathy, no thyroid enlargement, nontender, no masses palpated. Negative for JVD Chest: Normal AP diameter and contour without kyphoscoliosis, Equal chest rise without nasal flaring, retractions, tachypneic or labored breathing. Lungs: Auscultation of all lung vel[place]co are clear without adventitious sounds, wheezes, rhonchi, or rales. Cardio: regular tachycardic rate and rhythm without murmur, rubs, or gallops, no carotid bruit, no cardiac pulsations present. Abdomen: Soft nontender, negative for organomegaly, or masses. Bowel sounds are present in all 4 quadrants without guarding or rebound, no CVA tenderness. Musculoskeletal: Muscle strength and tone are equal, no deformity, crepitus, effusions, cyanosis, clubbing present. Noted trace left ankle nonpitting edema- baseline. Right foot is in a walking boot. Full range of motion intact radial and pedal pulses are normal. Skin: Warm dry and intact without rashes, ulcerations or petechiae. Neuro: Alert and orientated x3, moves all extremities, sensation to touch intact, no gross deficits noted of cranial nerves. Psych: Patient has a well-kept appearance, appropriate affect, mental status attitude thought context and judgment are appropriate for age. Objective Labs 09/26/22 05:03 09/26/22 05:03 Labs: Laboratory Results - last 24 hr 09/26/22 09/26/22 05:03 05:03 WBC 8.8 RBC 4.42 L Hgb 13.5 Hct 38.7 L MCV 87.6 MCH 30.6 MCHC 35.0 RDW 14.1 Plt Count 197 Neut % (Auto) 66.6 Lymph % (Auto) 22.0 L [place] % (Auto) 9.5 Eos % (Auto) 1.5 L Baso % (Auto) 0.4 Neut # (Auto) 5900 Lymph # (Auto) 1900 [place] # (Auto) 800 Eos # (Auto) 100 Baso # (Auto) 0 Sodium 132 L Potassium 3.9 Chloride 102 Carbon Dioxide 24 BUN 16 Creatinine 0.88 Estimated GFR > 60 BUN/Creatinine Ratio 18.2 Glucose 120 H Calcium 8.5 PFSH Medical History Essential hypertension Hyperlipidemia due to type 2 diabetes mellitus Non-insulin dependent diabetes mellitus Surgical History (Updated 09/25/22 @ 04:29 by BEENA Thapa) History of cholecystectomy Family History (Updated 09/25/22 @ 04:30 by BEENA Thapa) Mother Diabetes mellitus Hypertension Father Diabetes mellitus Hypertension History of open heart surgery Heart attack Social History (Updated 09/25/22 @ 04:30 by BEENA Thapa) household members: none Smoking Status: Never smoker alcohol intake: never substance use type: does not use Discharge Plan Discharge Plan Patient Disposition: Home Provider Discharge Comment: You were admitted to the hospital with urinary retention and abnormal vital signs. These vitals were likely elevated due to pain, there is a possible urinary infection for which you can complete antibiotics at home. You are to be non weight bearing on your R ankle due to the fracture you have per orthopedics. Please keep your boot on and use assistive devices to keep weight off. Please follow up with your providers in [place] for further management of the fracture and please see your PCP for further BP medication adjustments. Discharge orders & Medications Prescriptions: New lisinopril 10 mg tablet 10 mg PO DAILY 30 Days Qty: 30 0RF levofloxacin 750 mg tablet 750 mg PO DAILY 5 Days Qty: 5 0RF oxycodone 5 mg tablet 5 mg PO Q8H PRN (Reason: pain) 7 Days Qty: 10 0RF Continued metformin 500 mg tablet 500 mg PO DAILY lovastatin 10 mg tablet 10 mg PO DAILY sildenafil 25 mg tablet 25 mg PO DAILY PRN (Reason: Erectile Dysfunction) Rx Instructions: administer 30 minutes to 4 hours before activity tamsulosin [Flomax] 0.4 mg capsule 0.4 mg PO DAILY Qty: 30 0RF metoprolol tartrate 50 mg tablet 50 mg PO BID Patient Comments: TAKE ONE TABLET BY MOUTH TWICE DAILY. Discontinued lisinopril 5 mg tablet 5 mg PO DAILY Follow up/Referrals: Jonah Godinez MD [Primary Care Provider] - Diet/Activity/Treatments Diet: Diet as Tolerated, Regular and Carb-consistent/Diabetic Activity: non weight bearing on RLE Catheter: 2-way Ayala Catheter comment: Follow up with urology in the next few weeks to check on possible removal Skin/Wound/Dressing Care Report to your healthcare provider any signs of infection, such as:: increased pain and unusual drainage Visit Report/Discharge Packet Instructions: How to Care for Your Ayala Catheter -- Male, DI for Urinary Tract Infection (UTI), DI for Prescription Opioid Use Stand Alone Forms: Patient Portal/API, Stroke Signs & Symptoms Discharge Data Primary Care Provider: Jonah Godinez Attending Provider: Imelda Kee Admit Date/Time: 09/25/22 03:24 Discharges patient from system. Discharge Date/Time: 09/26/22 15:57
--- NOTE | 2022-09-26 14:48 | CM.DPNOTE ---
DC Note Therapies had been recommending SNF yesterday afternoon r/t patient's non-weight bearing status and need for assistance. Patient wants to discharge home Ultimately, patient was able to get friend(s) to assist and patient decided it would be best to have his friend(s) drive him back to [place] for further care and follow up Caregiver training completed with friend this morning, cleared by therapies for discharge home Plan: Discharge home w/friends to assist, close outpatient follow up recommended [facility]
[2022-09-27 00:37] LABS: x Labcorp Estim. Avg Glu (eAG) 123 mg/dL (.); x Labcorp Hemoglobin A1c 5.9 % (4.8-5.6)
== END 2022-09-26 15:57 | disposition home or self-care (01) ==
LOC: ED 09-25 03:21 → AC 09-25 03:34
PROVIDERS: Admitting Provider Nurse Practitioner Family; Emergency Provider Emergency Medicine; PCP Internal Medicine; Referring Provider Emergency Medicine; Visit Provider Nurse Practitioner Family
DX: N39.0 Urinary tract infection, site not specified (principal); I16.0 Hypertensive urgency; R00.0 Tachycardia, unspecified; E87.21 Acute metabolic acidosis; R33.9 Retention of urine, unspecified; D72.829 Elevated white blood cell count, unspecified; S82.831D Other fracture of upper and lower end of right fibula, subsequent encounter for closed fracture with routine healing; I10 Essential (primary) hypertension; E11.9 Type 2 diabetes mellitus without complications; E78.5 Hyperlipidemia, unspecified; Z20.822 Contact with and (suspected) exposure to COVID-19; Z79.84 Long term (current) use of oral hypoglycemic drugs; R33.8 Other retention of urine; R10.30 Lower abdominal pain, unspecified
CPT/HCPCS: 0241U; 36415; 51702; 71045; 80048; 80053; 80061; 81001; 81003; 82550; 82962; 83036; 83605; 83690; 83735; 83880; 84145; 84484; 85025; 85610; 85730; 87040; 87086; 93005; 93010; 93306; 96361; 96365; 96366; 96372; 96375; 97116; 97161; 97166; 97530; 97535; 99283; 99284; G0378; J0696; J1650; J1885